=== PATIENT | female | born 1955 | race Caucasian/White ===

== ENCOUNTER 2016-04-27 11:35 | Emergency (ER) | payer MEDICARE, OTHER ==
[2015-09-30 01:40] VITALS: BMI 23.6
[~2016-04-27 11:35] MED LIST: ADVIL200 MG PO; ASPIRIN325 MG PO; CLEOCIN HCL75 MG; CLONAZEPAM1 MG/TAB PO; CLONAZEPAM2 MG/TAB; CLONAZEPAM2 MG/TAB PO; COLACE100 MG PO; CREON (PANCRELI1 CAP PO; CREON DR 24,001 EACH PO; DILAUDID2 MG PO; ESTRACE1 MG PO; HYDROCODON-ACE1 EAC7 PO; HYDROCODONE-APA1 TAB PO; IBUPROFEN200 MG PO; K-DUR20 MEQ PO; LIBRAX CAPSULE1 CAP PO; LIDOCAINE PATCH; MIGRANAL IH; MILK OF MAGNESI30 ML PO; PERCOCET 10/3251 TA1 PO; SEROQUEL200 MG PO; SEROQUEL400 MG PO; TENORMIN100 MG PO; TRICOR145 MG PO
[2016-04-27 13:08] LABS: BASOPHILS 0.2 % (0.0-2.0); HEMATOCRIT 37.4 % (36.0-48.0); HEMOGLOBIN 12.6 g/dL (12-16); IMMATURE GRANULOCYTES 0.5 % (0-5); LYMPHOCYTES 19.9 % (15-50); MCH 29.5 pg (26.0-34.0); MCHC 33.7 g/dL (31.0-37.0); MCV 87.6 fL (80.0-100.0); MEAN PLATELET VOLUME 9.2 fL (7.4-10.4); MONOCYTES 8.8 % (2-11); NEUTROPHILS 68.6 % (40-80); RBC 4.27 10x6/uL (4.00-5.40); RDW 12.6 % (11.5-14.5); WBC 4.1 10x3/uL (4.8-10.8)
[2016-04-27 13:19] LABS: PLATELET COUNT 181 10x3/uL (130-400)
[2016-04-27 13:27] LABS: ALBUMIN 3.6 g/dL (3.4-5.0); ANION GAP 16.2 mmol/L (8-16); BILIRUBIN - TOTAL 0.3 mg/dL (0.2-1.3); CALCIUM 9.4 mg/dL (8.5-10.1); CARBON DIOXIDE 22.7 mmol/L (21.0-32.0); CREATININE - SERUM 1.2 mg/dL (0.6-1.3); POTASSIUM - SERUM 4.9 mmol/L (3.5-5.1); PROTEIN - SERUM 7.8 g/dL (6.4-8.2)
[2016-04-27 14:51] LABS: APPEARANCE CLEAR (CLEAR); BILIRUBIN NEGATIVE (NEGATIVE); COLOR YELLOW (YELLOW); GLUCOSE NEGATIVE (NEGATIVE); KETONE NEGATIVE (NEGATIVE); LEUKOCYTE ESTERASE NEGATIVE (NEGATIVE); NITRITE NEGATIVE (NEGATIVE); PROTEIN NEGATIVE (NEGATIVE); UROBILINOGEN NORMAL (NORMAL)
[2016-04-27 14:53] LABS: BACTERIA MODERATE /hpf (NONE SEEN); EPITHELIAL CELLS 0-5 /hpf (0-5); WHITE CELLS - URINE 0-5 /hpf (0-5)
[2016-04-27 15:00] LABS: UDS - AMPHET NEGATIVE QUAL (NEGATIVE); UDS - BARB NEGATIVE QUAL (NEGATIVE); UDS - BENZO POSITIVE QUAL (NEGATIVE); UDS - COCAINE NEGATIVE QUAL (NEGATIVE); UDS - METH NEGATIVE QUAL (NEGATIVE); UDS - OPIATE NEGATIVE QUAL (NEGATIVE); UDS - PCP NEGATIVE QUAL (NEGATIVE); UDS - THC NEGATIVE QUAL (NEGATIVE)
[2016-05-25] MEDS ORDERED: OXYCODONE HCL E20 MG PO (15:19)
== END 2016-04-27 16:54 | disposition home or self-care (01) ==
LOC: D.ER 11:35
PROVIDERS: Nurse Practitioner Family
DX: R50.9 Fever, unspecified (principal); T80.212A Local infection due to central venous catheter, initial encounter

== ENCOUNTER 2016-05-26 07:36 | Day surgery (SDC) | payer MEDICARE, OTHER ==
[~2016-05-26] VITALS: Ht 175.3 cm; Wt 73.5 kg
[~2016-05-26 07:36] MED LIST changes: +OXYCODONE HCL E20 MG PO
[2016-05-26 09:34] VITALS: BP 145/69; Ht 175.3 cm; Wt 73.5 kg
[2016-05-26] MEDS ORDERED: PERCOCET 10/3251 TA1 PO (13:01)
[2016-05-26] MEDS ORDERED: ADOXA50 MG PO (13:02)
--- NOTE | 2016-05-26 13:43 | NUR ---
PRE OP BP 164/90
--- NOTE | 2016-05-26 15:30 | NUR ---
NO FURTHER BLEEDING FROM RIGHT HIP SITE. NO BLEEDING FROM JUGULAR SITE. DISCHARGED HOME VIA WC.
--- NOTE | 2016-05-30 16:00 | OP ---
PATIENT NAME: BRANDIE GEIGER MEDICAL RECORD: [id number] :57 LOCATION:D.OPS ADMISSION DATE: SURGEON: TIFFANIE ROSS MD DATE OF OPERATION: 05/26/2016 PREOPERATIVE DIAGNOSES: 1. Painful right hip scar. 2. Right hip cyst. 3. Tobacco dependence syndrome. 4. Hypertension. 5. Asthma. 6. Hemochromatosis. POSTOPERATIVE DIAGNOSES: 1. Painful right hip scar. 2. Right hip cyst. 3. Tobacco dependence syndrome. 4. Hypertension. 5. Asthma. 6. Hemochromatosis. PROCEDURES: 1. Excision of right hip scar with primary closure. 2. Excision of right lateral thigh cyst. SURGEON: Tiffanie Ross MD REPORT OF PROCEDURE: The patient's right hip and lower extremity were prepped and draped in sterile fashion. The patient had a large scar present on the lateral aspect of the heel. An ovoid incision was made around it. In total length, this incision was 18-1/2 cm long. The incision was carried down through subcutaneous tissue and around this inflamed scar tissue. Eventually once we got down near the muscle, there was noted to be a cystic cavity present. There was no purulence within it, but some old fibrinous gelatinous tissue. This was removed and there was no sign of any infection at any point. Note, muscle and fascia itself appeared to be intact and in good condition. After, we had removed all of the scar tissue, then the subcutaneous tissues were irrigated out and reapproximated with multiple interrupted 3-0 Vicryls. The skin was then closed with vertical mattress 2-0 nylons. There is another firm area just inferior and anterior to this on the lateral right heel and ovoid incision was made longitudinally over top of this and it measured 6 cm in length. We came through the subcutaneous tissues and we encountered the cyst cavity with some what appeared to be kind of purulent material. There was no foul odor. There was no sign of any surrounding erythema and there was just a small amount of this material. We completely excised the cyst cavity and it got down to just normal appearing fatty tissue. This tissue was irrigated out with normal saline and the skin was then closed with interrupted vertical mattress 2-0 nylons. The wounds were then dressed appropriately. COMPLICATIONS: None. CONDITION: Stable. ANESTHESIA: General endotracheal. OPERATIVE REPORT [id number] BRANDIE GEIGER BLOOD LOSS: 50 mL. TRANSINT:[id number] Voice Confirmation ID: [id number] DOCUMENT ID: [id number] TIFFANIE ROSS MD at 1600 CC: [id number] DICTATION DATE: 05/26/16 1310 DESIGN LEAD: 05/26/16 2104 [facility] 05/26/16 [place] [id number] [place] [id number]
== END 2016-05-26 15:30 | disposition home or self-care (01) ==
LOC: D.OPS 07:36 → D.PAN 09:40 → D.OPS 11:30
DX: L90.5 Scar conditions and fibrosis of skin (principal); L72.0 Epidermal cyst

== ENCOUNTER 2016-05-27 15:53 | Emergency (ER) | payer MEDICARE, OTHER ==
[2016-05-26 09:34] VITALS: BMI 23.9
[~2016-05-27 15:53] MED LIST changes: +ADOXA50 MG PO
[2016-05-27 19:17] LABS: BASOPHILS 0.2 % (0.0-2.0); EOSINOPHILS 1.4 % (0-7); HEMATOCRIT 29.1 % (36.0-48.0); HEMOGLOBIN 9.5 g/dL (12-16); LYMPHOCYTES 16.1 % (15-50); MCHC 32.6 g/dL (31.0-37.0); MCV 85.8 fL (80.0-100.0); MEAN PLATELET VOLUME 9.1 fL (7.4-10.4); NEUTROPHILS 72.3 % (40-80); PLATELET COUNT 211 10x3/uL (130-400); RBC 3.39 10x6/uL (4.00-5.40); RDW 12.5 % (11.5-14.5); WBC 8.1 10x3/uL (4.8-10.8)
== END 2016-05-27 21:40 | disposition home or self-care (01) ==
LOC: D.ER 15:53
PROVIDERS: Physician Assistant
DX: G89.18 Other acute postprocedural pain (principal); Z98.890 Other specified postprocedural states; D64.9 Anemia, unspecified; F17.200 Nicotine dependence, unspecified, uncomplicated

== ENCOUNTER 2016-05-28 01:55 | Observation (INO) | payer MEDICARE, OTHER ==
[~2016-05-28] VITALS: Ht 175.3 cm; Wt 73.5 kg
[2016-05-28 03:25] LABS: BASOPHILS 0.1 % (0.0-2.0); EOSINOPHILS 2.5 % (0-7); HEMATOCRIT 27.6 % (36.0-48.0); IMMATURE GRANULOCYTES 0.4 % (0-5); LYMPHOCYTES 21.2 % (15-50); MCH 28.3 pg (26.0-34.0); MCHC 32.6 g/dL (31.0-37.0); MCV 86.8 fL (80.0-100.0); MEAN PLATELET VOLUME 8.8 fL (7.4-10.4); MONOCYTES 13.5 % (2-11); NEUTROPHILS 62.3 % (40-80); PLATELET COUNT 189 10x3/uL (130-400); RBC 3.18 10x6/uL (4.00-5.40); RDW 12.5 % (11.5-14.5); WBC 7.3 10x3/uL (4.8-10.8)
[2016-05-28 04:33] LABS: ALBUMIN 3.2 g/dL (3.4-5.0); ANION GAP 12.6 mmol/L (8-16); BILIRUBIN - TOTAL 0.14 mg/dL (0.2-1.3); CALCIUM 8.6 mg/dL (8.5-10.1); CARBON DIOXIDE 29.7 mmol/L (21.0-32.0); CREATININE - SERUM 1.1 mg/dL (0.6-1.3); MAGNESIUM - SERUM 1.9 mg/dL (1.8-2.4); PHOSPHOROUS 4.1 mg/dL (2.5-4.9); POTASSIUM - SERUM 3.3 mmol/L (3.5-5.1); PROTEIN - SERUM 6.3 g/dL (6.4-8.2)
[2016-05-28 04:35] LABS: APTT 31.7 SECONDS (22.8-39.4); INR 1.2 (0.85-1.17); PROTIME 15.1 SECONDS (11.6-15.0)
[2016-05-28 05:08] VITALS: BP 148/58; BMI 23.9
--- NOTE | 2016-05-28 07:10 | NUR ---
WALKING ROUNDS.PT WITHOUT DISTRESS.NPO FOR POSSIBLE SURGERY TODAY.PAIN CONTROLLED WITH CONSTRUCTION EQUIPMENT TECHNICIAN.DRESSING RIGHT HIP CLEN,DRY AND INTACT.CALL LIGHT IN REACH.
--- NOTE | 2016-05-28 08:10 | NUR ---
ASSESSMENT PER FLOW SHEET.PT WITHOUT DISTRESS.CONSENTS TO CHART ORDERED.PT UP TO BATHROOM TO VOID.DRESSING RIGHT HIP REMAINS CLEAN AND DRY.PT REMAINS NPO.
--- NOTE | 2016-05-28 08:36 | NUR ---
PRE MEDS ORDERED,SEE MAY.JOSE FONTAINE COMPLETE.
[2016-05-28 08:57] VITALS: BP 103/44
[2016-05-28 10:37] VITALS: Ht 175.3 cm; Wt 73.5 kg
[2016-05-28 12:24] VITALS: BP 107/52
--- NOTE | 2016-05-28 15:10 | NUR ---
BLOOD PRODUCTS ORDERED.PT WITHOUT REACTIONS.MONITOR FOR CHANGE.
--- NOTE | 2016-05-28 15:35 | NUR ---
BLOOD PRODUCTS COMPLETE.REMAINS WITHOUT REACTIONS.
--- NOTE | 2016-05-28 19:41 | NUR ---
REMAINS UNCHANGED FROM INITIAL ASSESSMENT.DRESSING RIGHT HIP REMAINS CDI. CONT PLAN OF CARE
[2016-05-28 20:00] VITALS: BP 132/61
--- NOTE | 2016-05-28 20:01 | NUR ---
PATIENT WATCHING TV AND DENIES NEEDS AT THIS TIME. BED IN LOWEST POSITION AND CALL LIGHT WITHIN REACH. ENCOURAGED PATIENT TO CALL IF SHE NEEDS ASSISTANCE.
[2016-05-29] VITALS: BP 113/62
[2016-05-29 04:00] VITALS: BP 110/58
[2016-05-29 07:53] VITALS: BP 143/64
--- NOTE | 2016-05-29 08:00 | NUR ---
WALKING ROUNDS,WITHOUT DISTRESS.AWAKENS INT.CALL LIGHT IN REACH
--- NOTE | 2016-05-29 08:00 | NUR ---
ASSESSMENT PER FLOW SHEET.PT WITHOUT DISTRESS.CALL LIGHT IN REACH.
[2016-05-29 11:10] VITALS: BP 131/75
--- NOTE | 2016-05-29 12:30 | NUR ---
PAIN CONTROLLED WITH HEALTH CONSULTANT.
[2016-05-29 15:56] VITALS: BP 117/50
--- NOTE | 2016-05-29 18:56 | NUR ---
REMAINS WITHOUT BLEEDING.WILL DISCHARGE HOME TODAY. SEE ORDERS
--- NOTE | 2016-05-29 21:09 | NUR ---
PATIENT HAS VOICED CONCERNS ABOUT GOING HOME AND REQUESTED THAT DR. ROSS BE CALLED ABOUT POSTPONING HER D/C. PAGED DR. ROSS WHO SAID NOT TO D/C THE PATIENT.
[2016-05-30] VITALS: BP 148/63
--- NOTE | 2016-05-30 01:31 | NUR ---
MARKED APROX 8X10 AREA ON PRESSURE DRESSING. IS AT BEDSIDE AND THE PATIENT IS CONCERNED ABOUT GOING HOME.
[2016-05-30 04:00] VITALS: BP 144/60
[2016-05-30 08:14] VITALS: BP 151/68
--- NOTE | 2016-05-30 08:14 | NUR ---
PT AOX4 RESP EVEN AND NONLABORED IV TO RIGHT BREAST PATENT AND INTACT PT. DENIES NEEDS AT THIS TIME BED AT LOWEST SETTING AND CALL LIGHT WITHIN REACH
[2016-05-30 12:07] VITALS: BP 128/68
[2016-05-30 15:29] VITALS: BP 172/81
--- NOTE | 2016-05-30 17:23 | NUR ---
IV DISCONTINUED FROM RIGHT BREAST PATENT AND INTACT PT WHEELED OUT OF HOSPITAL VIA WHEELCHAIR VIA PRIVATE VEHICLE HOME
--- NOTE | 2016-07-12 14:51 | DS ---
PATIENT:BRANDIE GEIGER :57 MEDICAL RECORD: [id number] DISCHARGE SUMMARY ADMISSION DATE: 05/28/16 DISCHARGE DATE: 05/30/16 DATE OF ADMISSION: 05/28/2016. DATE OF DISCHARGE: 05/30/2016. ADMISSION DIAGNOSES: 1. Postoperative bleeding, status post scar revision of the right lateral hip. 2. Hypertension. 3. Acute blood loss anemia. 4. Hemochromatosis. DISCHARGE DIAGNOSES: 1. Postoperative bleeding, status post scar revision of the right lateral hip. 2. Hypertension. 3. Acute blood loss anemia. 4. Hemochromatosis. PROCEDURE: None. CONSULTATIONS: None. REPORT OF HOSPITALIZATION: The patient was admitted to the hospital with some bleeding from her dressing on the right lateral hip 2 days before she had undergone surgery for scar revision. She was admitted back to the hospital. She had some bleeding that was present, was treated with a pressure dressing, which significantly slowed the bleeding down. Her coags were essentially normal, but her INR was mildly elevated at 1.2. Per the patient's report, this is about the fourth time she has had issues with postoperative bleeding. She reports easy bruisability. She has been seen by Dr. Wilson in the past for hemochromatosis, but never been worked up for any sort of bleeding or coagulation disorders. For a couple of days, she was monitored and had no signs of significant bleeding. She still had some bloody drainage from her dressing, but did not appear to have acute bleed and her hemoglobin and hematocrit stayed level. At that point, she was felt to be stable for discharge home. At the initial day of admission, the patient was given a unit of cryoprecipitate. DISCHARGE INSTRUCTIONS: Return to clinic or call with any questions or concerns or bleeding. FOLLOWUP: In clinic with me in 1-2 weeks. DISCHARGE MEDICATIONS: Resume all home medications and stop her ibuprofen. TRANSINT:[id number] Voice Confirmation ID: [id number] DOCUMENT ID: [id number] DISCHARGE SUMMARY REPORT [id number] FELYBINGBRANDIETIFFANIE SPANGLER MD at 1451 CC: [id number] DICTATION DATE: 06/17/16 1259 TURBINE INSPECTOR: 06/18/16 0336 DIS IN 05/30/16 [address] [id number] [place] [address]
== END 2016-05-30 16:20 | disposition home or self-care (01) ==
LOC: D.ER 01:55 → OBSVTIME 03:58 → D.MS 03:58
PROVIDERS: Surgery; ADMIT Surgery
DX: L76.22 Postprocedural hemorrhage of skin and subcutaneous tissue following other procedure (principal); Y83.8 Other surgical procedures as the cause of abnormal reaction of the patient, or of later complication, without mention of misadventure at the time of the procedure; I10 Essential (primary) hypertension; R00.0 Tachycardia, unspecified; E78.5 Hyperlipidemia, unspecified; Z87.891 Personal history of nicotine dependence

== ENCOUNTER → 2016-06-28 16:43 | Outpatient (CLI) | payer MEDICARE, OTHER ==
[2016-05-28 10:37] VITALS: BMI 23.9
[2016-06-28 17:51] LABS: HEMATOCRIT 33.7 % (36.0-48.0); HEMOGLOBIN 11.1 g/dL (12-16); MCHC 32.9 g/dL (31.0-37.0); MEAN PLATELET VOLUME 9.2 fL (7.4-10.4); RBC 3.83 10x6/uL (4.00-5.40); RDW 13.8 % (11.5-14.5); WBC 6.4 10x3/uL (4.8-10.8)
[2016-06-28 19:03] LABS: IRON 38 ug/dl (35-150); UNSAT IRON BIND CAPACITY 256 ug/dl (150-375)
[2016-06-28 19:04] LABS: % SATURATION 12 % (15-55); TOTAL IRON BIND CAPACITY 294 ug/dl (260-445)
== END | disposition home or self-care (01) ==
LOC: D.LAB 15:30
PROVIDERS: Legal Medicine
DX: D69.9 Hemorrhagic condition, unspecified (principal)

== ENCOUNTER 2016-07-20 01:01 | Emergency (ER) | payer MEDICARE, OTHER ==
[2016-05-28 10:37] VITALS: BMI 23.9
== END 2016-07-20 04:37 | disposition home or self-care (01) ==
LOC: D.ER 01:01
DX: G89.18 Other acute postprocedural pain (principal); L76.82 Other postprocedural complications of skin and subcutaneous tissue

== ENCOUNTER → 2016-12-30 17:11 | Outpatient (CLI) | payer MEDICARE, OTHER ==
[2016-05-28 10:37] VITALS: BMI 23.9
[2016-12-30 20:39] LABS: APPEARANCE CLEAR (CLEAR); BILIRUBIN NEGATIVE (NEGATIVE); COLOR YELLOW (YELLOW); GLUCOSE NEGATIVE (NEGATIVE); KETONE NEGATIVE (NEGATIVE); NITRITE NEGATIVE (NEGATIVE); PROTEIN NEGATIVE (NEGATIVE); UROBILINOGEN NORMAL (NORMAL)
== END | disposition home or self-care (01) ==
LOC: D.LABREF 17:11
PROVIDERS: Family Medicine
DX: N39.0 Urinary tract infection, site not specified (principal)

== ENCOUNTER → 2017-01-02 13:12 | Outpatient (CLI) | payer MEDICARE, OTHER ==
[2016-05-28 10:37] VITALS: BMI 23.9
[2017-01-02 13:58] LABS: BASOPHILS 0.5 % (0-2); EOSINOPHILS 5.6 % (0-7); HEMATOCRIT 28.8 % (36.0-48.0); HEMOGLOBIN 9.4 g/dL (12-16); IMMATURE GRANULOCYTES 1.1 % (0-5); LYMPHOCYTES 20.3 % (15-50); MCH 29.6 pg (26.0-34.0); MCHC 32.6 g/dL (31.0-37.0); MCV 90.6 fL (80.0-100.0); MEAN PLATELET VOLUME 10.7 fL (7.4-10.4); MONOCYTES 9.3 % (2-11); NEUTROPHILS 63.2 % (40-80); PLATELET COUNT 193 10x3/uL (130-400); RBC 3.18 10x6/uL (4.00-5.40); RDW 12.9 % (11.5-14.5); WBC 4.4 10x3/uL (4.8-10.8)
[2017-01-02 14:20] LABS: CREATININE - SERUM 0.9 mg/dL (0.6-1.3); VANCOMYCIN - TROUGH 10.8 ug/mL (10.0-20.0)
== END | disposition home or self-care (01) ==
LOC: D.LABREF 13:12
PROVIDERS: Family Medicine
DX: T84.59XA Infection and inflammatory reaction due to other internal joint prosthesis, initial encounter (principal)

== ENCOUNTER → 2017-01-09 13:51 | Outpatient (CLI) | payer MEDICARE, OTHER ==
[2016-05-28 10:37] VITALS: BMI 23.9
[2017-01-09 16:26] LABS: BASOPHILS 0.2 % (0-2); EOSINOPHILS 5.4 % (0-7); HEMATOCRIT 28.4 % (36.0-48.0); HEMOGLOBIN 9.2 g/dL (12-16); IMMATURE GRANULOCYTES 0.2 % (0-5); LYMPHOCYTES 17.3 % (15-50); MCH 29.8 pg (26.0-34.0); MCHC 32.4 g/dL (31.0-37.0); MCV 91.9 fL (80.0-100.0); MEAN PLATELET VOLUME 10.7 fL (7.4-10.4); MONOCYTES 8.8 % (2-11); NEUTROPHILS 68.1 % (40-80); PLATELET COUNT 200 10x3/uL (130-400); RBC 3.09 10x6/uL (4.00-5.40); RDW 14.2 % (11.5-14.5); WBC 4.4 10x3/uL (4.8-10.8)
== END | disposition home or self-care (01) ==
LOC: D.LABREF 13:51
PROVIDERS: Family Medicine
DX: T84.53XD Infection and inflammatory reaction due to internal right knee prosthesis, subsequent encounter (principal)

== ENCOUNTER → 2017-01-11 15:44 | Outpatient (CLI) | payer MEDICARE, OTHER ==
[2016-05-28 10:37] VITALS: BMI 23.9
[2017-01-11 16:51] LABS: BASOPHILS 0.2 % (0-2); EOSINOPHILS 6.6 % (0-7); HEMATOCRIT 32.8 % (36.0-48.0); HEMOGLOBIN 10.6 g/dL (12-16); IMMATURE GRANULOCYTES 0.2 % (0-5); LYMPHOCYTES 18.4 % (15-50); MCH 29.6 pg (26.0-34.0); MCHC 32.3 g/dL (31.0-37.0); MCV 91.6 fL (80.0-100.0); MEAN PLATELET VOLUME 10.1 fL (7.4-10.4); MONOCYTES 10.9 % (2-11); NEUTROPHILS 63.7 % (40-80); PLATELET COUNT 193 10x3/uL (130-400); RBC 3.58 10x6/uL (4.00-5.40); RDW 13.9 % (11.5-14.5); WBC 4.2 10x3/uL (4.8-10.8)
[2017-01-11 17:09] LABS: CREATININE - SERUM 1.5 mg/dL (0.6-1.3); VANCOMYCIN - TROUGH 26.3 ug/mL (10.0-20.0)
== END | disposition home or self-care (01) ==
LOC: D.LABREF 15:44
PROVIDERS: Family Medicine
DX: Z51.81 Encounter for therapeutic drug level monitoring (principal); Z79.2 Long term (current) use of antibiotics; E83.119 Hemochromatosis, unspecified; T84.53XD Infection and inflammatory reaction due to internal right knee prosthesis, subsequent encounter

== ENCOUNTER → 2017-01-16 13:36 | Outpatient (CLI) | payer MEDICARE, OTHER ==
[2016-05-28 10:37] VITALS: BMI 23.9
[2017-01-16 14:06] LABS: BASOPHILS 0.2 % (0-2); EOSINOPHILS 6.6 % (0-7); HEMATOCRIT 31.1 % (36.0-48.0); HEMOGLOBIN 10.4 g/dL (12-16); IMMATURE GRANULOCYTES 0.2 % (0-5); LYMPHOCYTES 18.4 % (15-50); MCH 29.7 pg (26.0-34.0); MCHC 33.4 g/dL (31.0-37.0); MCV 88.9 fL (80.0-100.0); MEAN PLATELET VOLUME 11.2 fL (7.4-10.4); MONOCYTES 11.3 % (2-11); NEUTROPHILS 63.3 % (40-80); PLATELET COUNT 211 10x3/uL (130-400); RDW 13.4 % (11.5-14.5); WBC 4.2 10x3/uL (4.8-10.8)
[2017-01-16 14:22] LABS: CREATININE - SERUM 1.4 mg/dL (0.6-1.3)
== END | disposition home or self-care (01) ==
LOC: D.LABREF 13:36
PROVIDERS: Family Medicine
DX: T84.53XD Infection and inflammatory reaction due to internal right knee prosthesis, subsequent encounter (principal)

== ENCOUNTER → 2017-01-23 12:49 | Outpatient (CLI) | payer MEDICARE, OTHER ==
[2016-05-28 10:37] VITALS: BMI 23.9
[2017-01-23 13:42] LABS: BASOPHILS 0.4 % (0-2); EOSINOPHILS 6.5 % (0-7); HEMATOCRIT 30.8 % (36.0-48.0); HEMOGLOBIN 10.3 g/dL (12-16); IMMATURE GRANULOCYTES 0.4 % (0-5); LYMPHOCYTES 19.8 % (15-50); MCHC 33.4 g/dL (31.0-37.0); MCV 89.8 fL (80.0-100.0); MEAN PLATELET VOLUME 11.2 fL (7.4-10.4); MONOCYTES 9.3 % (2-11); NEUTROPHILS 63.6 % (40-80); PLATELET COUNT 231 10x3/uL (130-400); RBC 3.43 10x6/uL (4.00-5.40); RDW 13.4 % (11.5-14.5); WBC 4.6 10x3/uL (4.8-10.8)
[2017-01-23 13:51] LABS: CREATININE - SERUM 1.2 mg/dL (0.6-1.3); VANCOMYCIN - TROUGH 16.6 ug/mL (10.0-20.0)
== END | disposition home or self-care (01) ==
LOC: D.LABREF 12:49
PROVIDERS: Family Medicine
DX: T84.53XD Infection and inflammatory reaction due to internal right knee prosthesis, subsequent encounter (principal)

== ENCOUNTER → 2017-01-30 11:23 | Outpatient (CLI) | payer MEDICARE, OTHER ==
[2016-05-28 10:37] VITALS: BMI 23.9
[2017-01-30 12:33] LABS: BASOPHILS 0.2 % (0-2); EOSINOPHILS 4.4 % (0-7); HEMATOCRIT 31.3 % (36.0-48.0); HEMOGLOBIN 10.5 g/dL (12-16); IMMATURE GRANULOCYTES 0.4 % (0-5); LYMPHOCYTES 14.1 % (15-50); MCH 29.7 pg (26.0-34.0); MCHC 33.5 g/dL (31.0-37.0); MCV 88.4 fL (80.0-100.0); MEAN PLATELET VOLUME 11.1 fL (7.4-10.4); MONOCYTES 7.4 % (2-11); NEUTROPHILS 73.5 % (40-80); PLATELET COUNT 208 10x3/uL (130-400); RBC 3.54 10x6/uL (4.00-5.40); RDW 12.9 % (11.5-14.5); WBC 4.8 10x3/uL (4.8-10.8)
[2017-01-30 13:08] LABS: CREATININE - SERUM 0.9 mg/dL (0.6-1.3); VANCOMYCIN - TROUGH 10.2 ug/mL (10.0-20.0)
== END | disposition home or self-care (01) ==
LOC: D.LABREF 11:23
PROVIDERS: Family Medicine
DX: T84.53XD Infection and inflammatory reaction due to internal right knee prosthesis, subsequent encounter (principal)

== ENCOUNTER → 2017-06-19 16:20 | Outpatient (CLI) | payer MEDICARE, OTHER ==
[2016-05-28 10:37] VITALS: BMI 23.9
[2017-06-20 07:36] LABS: ANION GAP 16.1 mmol/L (8-16); CALCIUM 8.1 mg/dL (8.5-10.1); CARBON DIOXIDE 26.5 mmol/L (21.0-32.0); HEMOGLOBIN 8.8 g/dL (12-16); MCH 29.9 pg (26.0-34.0); MCHC 32.6 g/dL (31.0-37.0); MCV 91.8 fL (80.0-100.0); PLATELET COUNT 174 10x3/uL (130-400); POTASSIUM - SERUM 3.6 mmol/L (3.5-5.1); RBC 2.94 10x6/uL (4.00-5.40); RDW 13.1 % (11.5-14.5); WBC 4.5 10x3/uL (4.8-10.8)
[2017-06-20 07:37] LABS: BASOPHILS 0.2 % (0-2); EOSINOPHILS 4.9 % (0-7); IMMATURE GRANULOCYTES 0.4 % (0-5); MEAN PLATELET VOLUME 11.4 fL (7.4-10.4); MONOCYTES 10.7 % (2-11); NEUTROPHILS 70.8 % (40-80)
[2017-06-20 07:47] LABS: VANCOMYCIN - TROUGH 7.6 ug/mL (10.0-20.0)
== END | disposition home or self-care (01) ==
LOC: D.LABREF 16:20
PROVIDERS: Family Medicine
DX: M00.9 Pyogenic arthritis, unspecified (principal)

== ENCOUNTER → 2017-06-26 14:05 | Outpatient (CLI) | payer MEDICARE, OTHER ==
[2016-05-28 10:37] VITALS: BMI 23.9
[2017-06-26 14:54] LABS: BASOPHILS 0.4 % (0-2); EOSINOPHILS 6.3 % (0-7); HEMATOCRIT 28.3 % (36.0-48.0); HEMOGLOBIN 9.3 g/dL (12-16); IMMATURE GRANULOCYTES 0.4 % (0-5); LYMPHOCYTES 15.6 % (15-50); MCH 29.9 pg (26.0-34.0); MCHC 32.9 g/dL (31.0-37.0); MEAN PLATELET VOLUME 10.1 fL (7.4-10.4); MONOCYTES 5.5 % (2-11); NEUTROPHILS 71.8 % (40-80); RBC 3.11 10x6/uL (4.00-5.40); RDW 13.4 % (11.5-14.5); WBC 4.7 10x3/uL (4.8-10.8)
[2017-06-26 14:55] LABS: PLATELET COUNT 228 10x3/uL (130-400)
[2017-06-26 15:07] LABS: ALBUMIN 2.5 g/dL (3.4-5.0); ALKALINE PHOSPHATASE 311 U/L (46-116); ALT (SGPT) 18 U/L (10-68); BILIRUBIN - TOTAL 0.24 mg/dL (0.2-1.3); CALC OSMOLALITY 287 mosm/kg (275-300); CALCIUM 8.4 mg/dL (8.5-10.1); CARBON DIOXIDE 28.7 mmol/L (21.0-32.0); CHLORIDE - SERUM 108 mmol/L (98-107); CREATININE - SERUM 0.8 mg/dL (0.6-1.3); GLUCOSE 112 mg/dL (74-106); POTASSIUM - SERUM 3.6 mmol/L (3.5-5.1); PROTEIN - SERUM 5.9 g/dL (6.4-8.2); SODIUM 144 mmol/L (136-145); UREA NITROGEN 12 mg/dL (7-18); VANCOMYCIN - TROUGH 13.2 ug/mL (10.0-20.0); eGFR NON AFRICAN AMERICAN 77 mL/min (90-120)
[2017-06-26 15:10] LABS: BILIRUBIN - DIRECT 0.04 mg/dL (0.00-0.30)
== END | disposition home or self-care (01) ==
LOC: D.LABREF 14:05
PROVIDERS: Orthopaedic Surgery
DX: M00.9 Pyogenic arthritis, unspecified (principal)

== ENCOUNTER → 2017-07-03 19:32 | Outpatient (CLI) | payer MEDICARE, OTHER ==
[2016-05-28 10:37] VITALS: BMI 23.9
[2017-07-03 19:45] LABS: BASOPHILS 0.6 % (0-2); EOSINOPHILS 12.6 % (0-7); HEMATOCRIT 29.6 % (36.0-48.0); HEMOGLOBIN 9.7 g/dL (12-16); IMMATURE GRANULOCYTES 0.2 % (0-5); LYMPHOCYTES 18.9 % (15-50); MCH 29.6 pg (26.0-34.0); MCHC 32.8 g/dL (31.0-37.0); MCV 90.2 fL (80.0-100.0); MEAN PLATELET VOLUME 10.6 fL (7.4-10.4); MONOCYTES 10.4 % (2-11); NEUTROPHILS 57.3 % (40-80); PLATELET COUNT 256 10x3/uL (130-400); RBC 3.28 10x6/uL (4.00-5.40); WBC 4.9 10x3/uL (4.8-10.8)
[2017-07-03 20:20] LABS: ANION GAP 13.3 mmol/L (8-16); BILIRUBIN - DIRECT 0.09 mg/dL (0.00-0.30); BILIRUBIN - INDIRECT 0.24 mg/dL (0.00-1.00); BILIRUBIN - TOTAL 0.33 mg/dL (0.2-1.3); CALCIUM 8.9 mg/dL (8.5-10.1); CARBON DIOXIDE 24.1 mmol/L (21.0-32.0); CREATININE - SERUM 0.9 mg/dL (0.6-1.3); POTASSIUM - SERUM 3.4 mmol/L (3.5-5.1); PROTEIN - SERUM 6.3 g/dL (6.4-8.2); VANCOMYCIN - TROUGH 15.6 ug/mL (10.0-20.0)
== END | disposition home or self-care (01) ==
LOC: D.LABREF 19:32
PROVIDERS: Internal Medicine
DX: M00.9 Pyogenic arthritis, unspecified (principal)

== ENCOUNTER → 2017-07-10 13:59 | Outpatient (CLI) | payer MEDICARE, OTHER ==
[2016-05-28 10:37] VITALS: BMI 23.9
[2017-07-10 14:19] LABS: BASOPHILS 0.3 % (0-2); EOSINOPHILS 10.9 % (0-7); HEMATOCRIT 30.6 % (36.0-48.0); HEMOGLOBIN 10.2 g/dL (12-16); IMMATURE GRANULOCYTES 0.3 % (0-5); MCH 30.2 pg (26.0-34.0); MCHC 33.3 g/dL (31.0-37.0); MCV 90.5 fL (80.0-100.0); MEAN PLATELET VOLUME 11.8 fL (7.4-10.4); MONOCYTES 7.6 % (2-11); NEUTROPHILS 59.9 % (40-80); PLATELET COUNT 205 10x3/uL (130-400); RBC 3.38 10x6/uL (4.00-5.40); RDW 14.5 % (11.5-14.5); WBC 3.6 10x3/uL (4.8-10.8)
[2017-07-10 14:38] LABS: ALBUMIN 3.1 g/dL (3.4-5.0); ALKALINE PHOSPHATASE 185 U/L (46-116); ALT (SGPT) 37 U/L (10-68); BILIRUBIN - DIRECT 0.07 mg/dL (0.00-0.30); BILIRUBIN - INDIRECT 0.19 mg/dL (0.00-1.00); BILIRUBIN - TOTAL 0.26 mg/dL (0.2-1.3); CALC OSMOLALITY 284 mosm/kg (275-300); CARBON DIOXIDE 26.1 mmol/L (21.0-32.0); CHLORIDE - SERUM 106 mmol/L (98-107); CREATININE - SERUM 0.7 mg/dL (0.6-1.3); GLUCOSE 105 mg/dL (74-106); POTASSIUM - SERUM 3.4 mmol/L (3.5-5.1); PROTEIN - SERUM 6.2 g/dL (6.4-8.2); SODIUM 143 mmol/L (136-145); UREA NITROGEN 13 mg/dL (7-18); VANCOMYCIN - TROUGH 14.4 ug/mL (10.0-20.0); eGFR NON AFRICAN AMERICAN 90 mL/min (90-120)
== END | disposition home or self-care (01) ==
LOC: D.LABREF 13:59
PROVIDERS: Orthopaedic Surgery Hand Surgery
DX: M00.9 Pyogenic arthritis, unspecified (principal)

== ENCOUNTER → 2017-07-17 11:45 | Outpatient (CLI) | payer MEDICARE, OTHER ==
[2016-05-28 10:37] VITALS: BMI 23.9
[2017-07-17 13:18] LABS: BASOPHILS 0.2 % (0-2); EOSINOPHILS 13.5 % (0-7); HEMATOCRIT 29.2 % (36.0-48.0); HEMOGLOBIN 9.8 g/dL (12-16); IMMATURE GRANULOCYTES 0.2 % (0-5); LYMPHOCYTES 19.5 % (15-50); MCH 30.4 pg (26.0-34.0); MCHC 33.6 g/dL (31.0-37.0); MCV 90.7 fL (80.0-100.0); MEAN PLATELET VOLUME 11.8 fL (7.4-10.4); MONOCYTES 6.7 % (2-11); NEUTROPHILS 59.9 % (40-80); RBC 3.22 10x6/uL (4.00-5.40); WBC 4.3 10x3/uL (4.8-10.8)
[2017-07-17 13:27] LABS: PLATELET COUNT 148 10x3/uL (130-400)
[2017-07-17 13:28] LABS: ALBUMIN 3.1 g/dL (3.4-5.0); ANION GAP 13.8 mmol/L (8-16); BILIRUBIN - DIRECT 0.04 mg/dL (0.00-0.30); BILIRUBIN - INDIRECT 0.16 mg/dL (0.00-1.00); BILIRUBIN - TOTAL 0.2 mg/dL (0.2-1.3); CALCIUM 9.3 mg/dL (8.5-10.1); POTASSIUM - SERUM 3.8 mmol/L (3.5-5.1); VANCOMYCIN - TROUGH 14.5 ug/mL (10.0-20.0)
== END | disposition home or self-care (01) ==
LOC: D.LABREF 11:45
PROVIDERS: Internal Medicine
DX: M00.9 Pyogenic arthritis, unspecified (principal)

== ENCOUNTER → 2017-07-24 21:10 | Outpatient (CLI) | payer MEDICARE, OTHER ==
[2016-05-28 10:37] VITALS: BMI 23.9
[2017-07-24 22:41] LABS: BASOPHILS 0.2 % (0-2); HEMATOCRIT 29.3 % (36.0-48.0); HEMOGLOBIN 9.8 g/dL (12-16); LYMPHOCYTES 19.4 % (15-50); MCH 30.2 pg (26.0-34.0); MCHC 33.4 g/dL (31.0-37.0); MCV 90.4 fL (80.0-100.0); MEAN PLATELET VOLUME 11.7 fL (7.4-10.4); MONOCYTES 9.1 % (2-11); NEUTROPHILS 63.3 % (40-80); PLATELET COUNT 161 10x3/uL (130-400); RBC 3.24 10x6/uL (4.00-5.40); RDW 14.2 % (11.5-14.5); WBC 4.4 10x3/uL (4.8-10.8)
[2017-07-24 23:08] LABS: ALBUMIN 3.4 g/dL (3.4-5.0); ANION GAP 14.4 mmol/L (8-16); BILIRUBIN - DIRECT 0.06 mg/dL (0.00-0.30); BILIRUBIN - INDIRECT 0.13 mg/dL (0.00-1.00); BILIRUBIN - TOTAL 0.19 mg/dL (0.2-1.3); CALCIUM 8.7 mg/dL (8.5-10.1); CARBON DIOXIDE 27.9 mmol/L (21.0-32.0); CREATININE - SERUM 0.9 mg/dL (0.6-1.3); POTASSIUM - SERUM 3.3 mmol/L (3.5-5.1); PROTEIN - SERUM 6.1 g/dL (6.4-8.2); VANCOMYCIN - TROUGH 11.2 ug/mL (10.0-20.0)
== END | disposition home or self-care (01) ==
LOC: D.LAB 21:10
PROVIDERS: Orthopaedic Surgery
DX: M00.9 Pyogenic arthritis, unspecified (principal)

== ENCOUNTER → 2017-07-31 13:43 | Outpatient (CLI) | payer MEDICARE, OTHER ==
[2016-05-28 10:37] VITALS: BMI 23.9
[2017-07-31 16:09] LABS: BASOPHILS 0.3 % (0-2); EOSINOPHILS 12.4 % (0-7); HEMATOCRIT 30.7 % (36.0-48.0); HEMOGLOBIN 10.3 g/dL (12-16); LYMPHOCYTES 13.9 % (15-50); MCH 30.8 pg (26.0-34.0); MCHC 33.6 g/dL (31.0-37.0); MCV 91.9 fL (80.0-100.0); MEAN PLATELET VOLUME 11.6 fL (7.4-10.4); MONOCYTES 7.1 % (2-11); NEUTROPHILS 66.3 % (40-80); PLATELET COUNT 152 10x3/uL (130-400); RBC 3.34 10x6/uL (4.00-5.40); RDW 14.2 % (11.5-14.5); WBC 3.8 10x3/uL (4.8-10.8)
[2017-07-31 16:32] LABS: ALBUMIN 3.3 g/dL (3.4-5.0); ANION GAP 13.3 mmol/L (8-16); BILIRUBIN - DIRECT 0.06 mg/dL (0.00-0.30); BILIRUBIN - INDIRECT 0.14 mg/dL (0.00-1.00); BILIRUBIN - TOTAL 0.2 mg/dL (0.2-1.3); CARBON DIOXIDE 27.1 mmol/L (21.0-32.0); CREATININE - SERUM 1.1 mg/dL (0.6-1.3); POTASSIUM - SERUM 3.4 mmol/L (3.5-5.1); PROTEIN - SERUM 6.2 g/dL (6.4-8.2)
== END | disposition home or self-care (01) ==
LOC: D.LABREF 13:43
PROVIDERS: Orthopaedic Surgery
DX: M00.9 Pyogenic arthritis, unspecified (principal)

== ENCOUNTER → 2017-08-07 15:41 | Outpatient (CLI) | payer MEDICARE, OTHER ==
[2016-05-28 10:37] VITALS: BMI 23.9
[2017-08-07 16:51] LABS: BASOPHILS 0.3 % (0-2); EOSINOPHILS 11.3 % (0-7); HEMATOCRIT 30.7 % (36.0-48.0); HEMOGLOBIN 10.2 g/dL (12-16); LYMPHOCYTES 16.8 % (15-50); MCH 30.8 pg (26.0-34.0); MCHC 33.2 g/dL (31.0-37.0); MCV 92.7 fL (80.0-100.0); MEAN PLATELET VOLUME 11.2 fL (7.4-10.4); MONOCYTES 7.2 % (2-11); NEUTROPHILS 64.4 % (40-80); PLATELET COUNT 181 10x3/uL (130-400); RBC 3.31 10x6/uL (4.00-5.40); RDW 14.1 % (11.5-14.5); WBC 3.9 10x3/uL (4.8-10.8)
[2017-08-07 17:05] LABS: ALBUMIN 3.5 g/dL (3.4-5.0); ANION GAP 11.1 mmol/L (8-16); BILIRUBIN - DIRECT 0.07 mg/dL (0.00-0.30); BILIRUBIN - INDIRECT 0.08 mg/dL (0.00-1.00); BILIRUBIN - TOTAL 0.15 mg/dL (0.2-1.3); CALCIUM 9.1 mg/dL (8.5-10.1); CREATININE - SERUM 0.9 mg/dL (0.6-1.3); POTASSIUM - SERUM 3.1 mmol/L (3.5-5.1); PROTEIN - SERUM 6.1 g/dL (6.4-8.2); VANCOMYCIN - TROUGH 13.7 ug/mL (10.0-20.0)
== END | disposition home or self-care (01) ==
LOC: D.LABREF 15:41
PROVIDERS: Orthopaedic Surgery
DX: M00.9 Pyogenic arthritis, unspecified (principal)

== ENCOUNTER → 2017-08-14 20:24 | Outpatient (CLI) | payer MEDICARE, OTHER ==
[2016-05-28 10:37] VITALS: BMI 23.9
[2017-08-14 23:56] LABS: HEMATOCRIT 29.5 % (36.0-48.0); MCH 30.8 pg (26.0-34.0); MCHC 33.9 g/dL (31.0-37.0); MCV 90.8 fL (80.0-100.0); MEAN PLATELET VOLUME 11.5 fL (7.4-10.4); NEUTROPHILS 67.1 % (40-80); PLATELET COUNT 172 10x3/uL (130-400); RBC 3.25 10x6/uL (4.00-5.40); RDW 13.7 % (11.5-14.5); WBC 3.5 10x3/uL (4.8-10.8)
[2017-08-15 00:18] LABS: ALBUMIN 3.7 g/dL (3.4-5.0); ANION GAP 10.5 mmol/L (8-16); BILIRUBIN - DIRECT 0.05 mg/dL (0.00-0.30); BILIRUBIN - INDIRECT 0.15 mg/dL (0.00-1.00); BILIRUBIN - TOTAL 0.2 mg/dL (0.2-1.3); CALCIUM 8.4 mg/dL (8.5-10.1); CARBON DIOXIDE 29.7 mmol/L (21.0-32.0); POTASSIUM - SERUM 3.2 mmol/L (3.5-5.1); PROTEIN - SERUM 6.2 g/dL (6.4-8.2); VANCOMYCIN - TROUGH 11.6 ug/mL (10.0-20.0)
== END | disposition home or self-care (01) ==
LOC: D.LABREF 20:24
PROVIDERS: Internal Medicine
DX: M00.9 Pyogenic arthritis, unspecified (principal)

== ENCOUNTER → 2017-08-21 14:17 | Outpatient (CLI) | payer MEDICARE, OTHER ==
[2016-05-28 10:37] VITALS: BMI 23.9
[2017-08-21 17:01] LABS: BASOPHILS 0.2 % (0-2); EOSINOPHILS 7.3 % (0-7); HEMATOCRIT 29.6 % (36.0-48.0); HEMOGLOBIN 10.1 g/dL (12-16); IMMATURE GRANULOCYTES 0.2 % (0-5); LYMPHOCYTES 16.4 % (15-50); MCH 30.8 pg (26.0-34.0); MCHC 34.1 g/dL (31.0-37.0); MCV 90.2 fL (80.0-100.0); MEAN PLATELET VOLUME 11.7 fL (7.4-10.4); MONOCYTES 10.5 % (2-11); NEUTROPHILS 65.4 % (40-80); PLATELET COUNT 187 10x3/uL (130-400); RBC 3.28 10x6/uL (4.00-5.40); RDW 13.4 % (11.5-14.5); WBC 4.4 10x3/uL (4.8-10.8)
[2017-08-21 17:49] LABS: ANION GAP 14.8 mmol/L (8-16); CALCIUM 10.2 mg/dL (8.5-10.1); CARBON DIOXIDE 29.3 mmol/L (21.0-32.0); POTASSIUM - SERUM 3.1 mmol/L (3.5-5.1)
== END | disposition home or self-care (01) ==
LOC: D.LABREF 14:17
PROVIDERS: Orthopaedic Surgery
DX: Z51.81 Encounter for therapeutic drug level monitoring (principal); Z79.2 Long term (current) use of antibiotics; M86.9 Osteomyelitis, unspecified

== ENCOUNTER → 2017-08-23 12:29 | Outpatient (CLI) | payer MEDICARE, OTHER ==
[2016-05-28 10:37] VITALS: BMI 23.9
[2017-08-23 12:59] LABS: HEMATOCRIT 27.4 % (36.0-48.0); HEMOGLOBIN 9.2 g/dL (12-16)
[2017-08-23 13:21] LABS: CALCIUM 8.4 mg/dL (8.5-10.1); CARBON DIOXIDE 28.9 mmol/L (21.0-32.0); CREATININE - SERUM 1.2 mg/dL (0.6-1.3); THYROID STIMULATING HORMONE 4.62 uIU/mL (0.36-3.74)
[2017-08-23 13:22] LABS: ANION GAP 11.1 mmol/L (8-16)
== END | disposition home or self-care (01) ==
LOC: D.LABREF 12:29
PROVIDERS: Internal Medicine
DX: M00.9 Pyogenic arthritis, unspecified (principal)

== ENCOUNTER → 2017-08-28 22:36 | Outpatient (CLI) | payer MEDICARE, OTHER ==
[2016-05-28 10:37] VITALS: BMI 23.9
[2017-08-28 23:27] LABS: BASOPHILS 0.3 % (0-2); EOSINOPHILS 8.8 % (0-7); HEMATOCRIT 28.9 % (36.0-48.0); HEMOGLOBIN 9.6 g/dL (12-16); IMMATURE GRANULOCYTES 0.3 % (0-5); LYMPHOCYTES 20.9 % (15-50); MCH 30.7 pg (26.0-34.0); MCHC 33.2 g/dL (31.0-37.0); MCV 92.3 fL (80.0-100.0); MONOCYTES 7.2 % (2-11); NEUTROPHILS 62.5 % (40-80); PLATELET COUNT 161 10x3/uL (130-400); RBC 3.13 10x6/uL (4.00-5.40); RDW 13.5 % (11.5-14.5); WBC 3.7 10x3/uL (4.8-10.8)
[2017-08-28 23:42] LABS: ANION GAP 13.1 mmol/L (8-16); CALCIUM 8.5 mg/dL (8.5-10.1); CARBON DIOXIDE 30.9 mmol/L (21.0-32.0); CREATININE - SERUM 1.2 mg/dL (0.6-1.3); VANCOMYCIN - TROUGH 14.7 ug/mL (10.0-20.0)
== END | disposition home or self-care (01) ==
LOC: D.LABREF 22:36
PROVIDERS: Orthopaedic Surgery
DX: M86.9 Osteomyelitis, unspecified (principal); Z51.81 Encounter for therapeutic drug level monitoring; Z79.2 Long term (current) use of antibiotics

== ENCOUNTER → 2017-09-04 16:24 | Outpatient (CLI) | payer MEDICARE, OTHER ==
[2016-05-28 10:37] VITALS: BMI 23.9
[2017-09-04 16:48] LABS: BASOPHILS 0.3 % (0-2); EOSINOPHILS 8.5 % (0-7); HEMATOCRIT 28.9 % (36.0-48.0); HEMOGLOBIN 9.9 g/dL (12-16); IMMATURE GRANULOCYTES 0.3 % (0-5); LYMPHOCYTES 18.3 % (15-50); MCH 30.7 pg (26.0-34.0); MCHC 34.3 g/dL (31.0-37.0); MCV 89.8 fL (80.0-100.0); MEAN PLATELET VOLUME 11.2 fL (7.4-10.4); MONOCYTES 8.5 % (2-11); NEUTROPHILS 64.1 % (40-80); PLATELET COUNT 169 10x3/uL (130-400); RBC 3.22 10x6/uL (4.00-5.40); RDW 12.7 % (11.5-14.5); WBC 3.6 10x3/uL (4.8-10.8)
[2017-09-04 17:01] LABS: ALBUMIN 3.8 g/dL (3.4-5.0); BILIRUBIN - DIRECT 0.06 mg/dL (0.00-0.30); BILIRUBIN - INDIRECT 0.12 mg/dL (0.00-1.00); BILIRUBIN - TOTAL 0.18 mg/dL (0.2-1.3); CALCIUM 8.6 mg/dL (8.5-10.1); CARBON DIOXIDE 34.1 mmol/L (21.0-32.0); POTASSIUM - SERUM 3.1 mmol/L (3.5-5.1); PROTEIN - SERUM 6.5 g/dL (6.4-8.2); THYROID STIMULATING HORMONE 2.44 uIU/mL (0.36-3.74); VANCOMYCIN - TROUGH 14.7 ug/mL (10.0-20.0)
== END | disposition home or self-care (01) ==
LOC: D.LABREF 16:24
PROVIDERS: Orthopaedic Surgery
DX: M00.9 Pyogenic arthritis, unspecified (principal)

== ENCOUNTER 2018-01-16 11:28 | Day surgery (SDC) | payer MEDICARE, OTHER ==
[~2018-01-16] VITALS: Ht 175.3 cm; Wt 60.0 kg
--- NOTE | ~2018-01-16 | OP ---
PATIENT NAME: BRANDIE SWAIN MEDICAL RECORD: [id number] :57 LOCATION:D.OPS ADMISSION DATE: SURGEON: CLARENCE ALFARO MD DATE OF OPERATION: 01/16/2018 PROCEDURES: EGD with biopsy and colonoscopy. REFERRING PHYSICIANS: 1. Ila Sahni MD 2. Aviation Warfare Systems Operator/oncologist, Maximiliano Machado MD INDICATIONS: Ms. Swain is a pleasant 62-year-old woman with history of chronic constipation, who presents for further evaluation of symptoms of nausea, epigastric abdominal pain, gas, and unintentional weight loss of 40 pounds over the past 3-4 months. She presents for outpatient EGD and colonoscopy. PREMEDICATIONS: Total IV anesthesia (propofol 310 mg). INSTRUMENTS: Olympus video gastroscope and Olympus video colonoscope. PROCEDURE AND FINDINGS: After receiving informed consent, Ms. Swain's posterior pharynx was anesthetized with Cetacaine spray. She was placed in left lateral decubitus position and prepared for EGD. Bite-block was placed and she was then sedated as per anesthesia. After achieving adequate level of sedation, gastroscope was introduced per orally and advanced into the duodenum without difficulty. The esophageal mucosa was without erythema; however, in the proximal aspect of the distal third of the esophagus ulcer, was a single ulcer with a white base, nonhemorrhagic, and was biopsied. Small hiatal hernia was present. Gastric mucosa was notable for moderate distal body of stomach and antral mucosa. Biopsies were obtained from the antrum to rule out Helicobacter pylori. No lesions were seen in cardia or fundus. Pylorus was patent and competent. Duodenal mucosa was without erythema or ulcers, appeared normal to the second portion. Biopsies were taken from the second portion of the duodenum to rule out celiac disease. The gastroscope was then withdrawn. She was prepared for colonoscopy. Digital rectal exam was performed that showed no external hemorrhoidal tags, fissures, or fistulas. Normal sphincter tone. No palpable rectal masses. Colonoscope was introduced per rectally and advanced to the cecum without difficulty. There was a large amount of soft stool in the cecum, ascending, transverse, and descending colon. Multiple lavages were performed. There was no blood seen in the colon. No polyps were seen; however, secondary to the prep, polyps and even small masses may have been missed. Retroflexion in the rectum showed no significant internal hemorrhoids. Withdrawal time was 6 minutes. No immediate complications. ASSESSMENT: 1. Single esophageal ulcer, status post biopsy. 2. Small hiatal hernia. 3. Moderate gastritis, likely NSAID induced. 4. Normal colonoscopy with exception of a poor to fair prep. 5. Abnormal weight loss. RECOMMENDATIONS: 1. Followup histopathology. OPERATIVE REPORT [id number] FELYBRANDIE LAURADoe 2. Omeprazole 20 mg p.o. b.i.d. 3. Continue famotidine 20 mg p.o. b.i.d. 4. Limit nonsteroidal anti-inflammatory drugs. 5. Recommend CT of abdomen and pelvis. TRANSINT:[id number] Voice Confirmation ID: [id number] DOCUMENT ID: [id number] CLARENCE ALFARO MD at 1828 CC: MAXIMILIANO MACHADO MD and ILA SAHNI MD [id number] DICTATION DATE: 01/16/18 1526 NUTRITION SPECIALIST: 01/16/18 1825 [facility] 01/16/[address] [address]
[2018-01-16 11:57] LABS: HEMATOCRIT 32.3 % (36.0-48.0); HEMOGLOBIN 10.8 g/dL (12-16); MCH 30.9 pg (26.0-34.0); MCHC 33.4 g/dL (31.0-37.0); MCV 92.6 fL (80.0-100.0); MEAN PLATELET VOLUME 11.2 fL (7.4-10.4); RBC 3.49 10x6/uL (4.00-5.40); RDW 13.7 % (11.5-14.5); WBC 4.8 10x3/uL (4.8-10.8)
[2018-01-16 12:52] VITALS: BP 153/63; Ht 175.3 cm; Wt 60.0 kg
== END 2018-01-16 17:10 | disposition home or self-care (01) ==
LOC: D.OPS 11:28
PROVIDERS: Anesthesiology
DX: K22.10 Ulcer of esophagus without bleeding (principal); K44.9 Diaphragmatic hernia without obstruction or gangrene; K29.50 Unspecified chronic gastritis without bleeding; Z01.812 Encounter for preprocedural laboratory examination; K59.09 Other constipation

== ENCOUNTER 2018-11-07 16:42 | Emergency (ER) | payer MEDICARE, OTHER ==
[~2018-11-07] VITALS: Ht 175.3 cm; Wt 65.0 kg
[2018-11-07 16:47] VITALS: Ht 175.3 cm; Wt 65.0 kg
[2018-11-07 18:41] LABS: BASOPHILS 0.2 % (0-2); EOSINOPHILS 4.4 % (0-7); HEMATOCRIT 29.2 % (36.0-48.0); HEMOGLOBIN 9.8 g/dL (12-16); IMMATURE GRANULOCYTES 0.4 % (0-5); MCH 30.9 pg (26.0-34.0); MCHC 33.6 g/dL (31.0-37.0); MCV 92.1 fL (80.0-100.0); MEAN PLATELET VOLUME 10.8 fL (7.4-10.4); PLATELET COUNT 207 10x3/uL (130-400); RBC 3.17 10x6/uL (4.00-5.40); RDW 13.4 % (11.5-14.5)
[2018-11-07 19:05] LABS: ALBUMIN 3.1 g/dL (3.4-5.0); ANION GAP 9.7 mmol/L (8-16); BILIRUBIN - TOTAL 0.27 mg/dL (0.2-1.3); CALCIUM 8.8 mg/dL (8.5-10.1); CARBON DIOXIDE 28.7 mmol/L (21.0-32.0); POTASSIUM - SERUM 4.4 mmol/L (3.5-5.1); PROTEIN - SERUM 5.8 g/dL (6.4-8.2)
[2018-11-08 02:00] VITALS: BP 144/57
== END 2018-11-08 02:00 | disposition other institution (70) ==
LOC: D.ER 16:42
PROVIDERS: Family Medicine
DX: K94.23 Gastrostomy malfunction (principal); K86.1 Other chronic pancreatitis

== ENCOUNTER → 2019-02-27 19:35 | Outpatient (CLI) | payer MEDICARE, OTHER ==
[2018-11-07 16:47] VITALS: BMI 21.1
== END | disposition home or self-care (01) ==
LOC: D.LABREF 19:35
PROVIDERS: ATTEND Surgery
DX: K94.22 Gastrostomy infection (principal)

== ENCOUNTER → 2019-04-04 14:29 | Outpatient (CLI) | payer MEDICARE, OTHER ==
[2018-11-07 16:47] VITALS: BMI 21.1
== END | disposition home or self-care (01) ==
LOC: D.LABREF 14:29
PROVIDERS: ATTEND Surgery
DX: K94.23 Gastrostomy malfunction (principal)

== ENCOUNTER 2019-04-11 17:46 | Emergency (ER) | payer MEDICARE, OTHER ==
[~2019-04-11] VITALS: Ht 175.3 cm; Wt 68.2 kg
[2019-04-11 17:58] VITALS: Ht 175.3 cm; Wt 68.2 kg
[2019-04-11 20:42] VITALS: BP 154/58
== END 2019-04-11 20:42 | disposition home or self-care (01) ==
LOC: D.ER 17:46
DX: S82.401A Unspecified fracture of shaft of right fibula, initial encounter for closed fracture (principal); S93.402A Sprain of unspecified ligament of left ankle, initial encounter; W19.XXXA Unspecified fall, initial encounter; Y93.9 Activity, unspecified; Y92.9 Unspecified place or not applicable; I10 Essential (primary) hypertension; E78.5 Hyperlipidemia, unspecified

== ENCOUNTER 2019-07-10 15:16 | Inpatient (IN) | payer MEDICARE, OTHER ==
[~2019-07-10] VITALS: Ht 175.3 cm; Wt 66.7 kg
[~2019-07-10 15:16] MED LIST changes: +BACLOFEN10 MG PO; +DILAUDID4 MG PO; +DOXYCYCLINE HY100 M2 PO; +ELIQUIS2.5 MG PO; +LIDODERM 5 %1 PATCH TRANSDERM; +NALOXONE 4 MG INH
--- NOTE | 2019-07-10 16:19 | NUR ---
PT URINE COLLECTED AND SENT TO LAB VIA TUBE SYSTEM.
[2019-07-10 16:31] LABS: BILIRUBIN NEGATIVE (NEGATIVE); GLUCOSE NEGATIVE (NEGATIVE); KETONE NEGATIVE (NEGATIVE); NITRITE POSITIVE (NEGATIVE); UROBILINOGEN NORMAL (NORMAL)
[2019-07-10 16:32] LABS: EPITHELIAL CELLS 0-5 /hpf (0-5); RED CELLS - URINE 0-5 /hpf (0-5); WHITE CELLS - URINE 0-5 /hpf (NEGATIVE)
[2019-07-10 16:33] LABS: BACTERIA MODERATE /hpf (NEGATIVE)
[2019-07-10 17:23] LABS: BASOPHILS 0.2 % (0-2); EOSINOPHILS 2.8 % (0-7); HEMATOCRIT 28.7 % (36.0-48.0); HEMOGLOBIN 9.2 g/dL (12-16); IMMATURE GRANULOCYTES 0.4 % (0-5); LYMPHOCYTES 20.7 % (15-50); MCH 28.7 pg (26.0-34.0); MCHC 32.1 g/dL (31.0-37.0); MCV 89.4 fL (80.0-100.0); MEAN PLATELET VOLUME 10.6 fL (7.4-10.4); NEUTROPHILS 64.9 % (40-80); PLATELET COUNT 167 10x3/uL (130-400); RBC 3.21 10x6/uL (4.00-5.40); RDW 13.4 % (11.5-14.5); WBC 4.9 10x3/uL (4.8-10.8)
[2019-07-10 17:28] VITALS: BP 152/74
[2019-07-10 17:33] LABS: CALC OSMOLALITY 278 mosm/kg (275-300); CALCIUM 7.3 mg/dL (8.5-10.1); CARBON DIOXIDE 22.9 mmol/L (21.0-32.0); CHLORIDE - SERUM 106 mmol/L (98-107); CREATININE - SERUM 0.8 mg/dL (0.6-1.3); GLUCOSE 96 mg/dL (74-106); POTASSIUM - SERUM 3.4 mmol/L (3.5-5.1); SODIUM 139 mmol/L (136-145); UREA NITROGEN 16 mg/dL (7-18); eGFR NON AFRICAN AMERICAN 77 mL/min (90-120)
[2019-07-10 17:47] LABS: ALBUMIN 2.1 g/dL (3.4-5.0); ALKALINE PHOSPHATASE 168 U/L (30-120); ALT (SGPT) 30 U/L (10-68); BILIRUBIN - TOTAL 0.43 mg/dL (0.2-1.3); MAGNESIUM - SERUM 1.6 mg/dL (1.8-2.4); PROTEIN - SERUM 4.8 g/dL (6.4-8.2); THYROID STIMULATING HORMONE 4.12 uIU/mL (0.36-3.74)
[2019-07-10 20:04] VITALS: BP 148/70
[2019-07-10 21:54] VITALS: BP 122/49; BMI 21.7
--- NOTE | 2019-07-11 03:32 | NUR ---
PATENT ALERT AND ORENTED WITH SOME CONFUSION NOTED AT TIMES. IV TO LEFT BREAST . WALKING BOOT TO RIGHT FOOT. PEG -TUB IN PLACE TO ABD. TELEMETRY IN PLACE 79 SR. STATED HAS C-PAP AT HOME. SCD IN PLACE. CALL LIGHT AND WATER IN REACH.
[2019-07-11 04:00] VITALS: BP 150/60
--- NOTE | 2019-07-11 07:11 | NUR ---
REFUSED AM LABS THIS AM.
[2019-07-11 09:31] VITALS: BP 158/64
--- NOTE | 2019-07-11 10:22 | NUR ---
SHE IS CONFUSED AT TIMES. HER CALLED TO CHECK ON HER. SHE IS ASKING ABOUT FOOD AFTER THE BREAKFAST TRAY HAD BEEN PICKED UP.
[2019-07-11 12:43] VITALS: Ht 175.3 cm; Wt 66.7 kg
[2019-07-11 13:29] VITALS: BP 149/68
[2019-07-11 17:50] VITALS: BP 153/62
--- NOTE | 2019-07-11 19:37 | NUR ---
I SPOKE WITH DR. PRADO REGARDING A CONSULT, HE SAID DR. ROSS WAS GETTING THE CONSULTS. I CALLED THE OFFICE AROUND 3:15 TODAY AND LEFT A MESSAGE WITH HIS CALL CENTER REGARDING A CONSULT ABOUT HER PEG TUBE SITE.
[2019-07-11 20:00] VITALS: BP 137/53
--- NOTE | 2019-07-12 03:59 | NUR ---
I have reviewed this patient and I concur with the Shift Assessment completed by the Licensed Practical Nurse today this shift.
[2019-07-12 04:00] VITALS: BP 146/59
--- NOTE | 2019-07-12 04:05 | NUR ---
PT RESTING IN BED. EYES CLOSED. NO SIGNS OF DISTRESS. BREATHING EVEN AND UNLABORED. IV SITE RT FA DRESSING CLEAN DRY AND INTACT. NO SIGNS OF INFECTION. NO SIGNS OF INFULTRATION. SKIN CLEAN DRY AND INTACT. LUNG SOUNDS CLEAR. BOWEL SOUNDS ACTIVE. WILL CONTINUE PLAN OF CARE. CALL LIGHT IN REACH. BED LOWERED AND LOCKED. BED RAILSX2
[2019-07-12 06:38] LABS: ALBUMIN 2.1 g/dL (3.4-5.0); ALKALINE PHOSPHATASE 141 U/L (30-120); ALT (SGPT) 24 U/L (10-68); BILIRUBIN - TOTAL 0.25 mg/dL (0.2-1.3); CALC OSMOLALITY 283 mosm/kg (275-300); CALCIUM 7.5 mg/dL (8.5-10.1); CARBON DIOXIDE 21.2 mmol/L (21.0-32.0); CHLORIDE - SERUM 109 mmol/L (98-107); CREATININE - SERUM 0.8 mg/dL (0.6-1.3); GLUCOSE 113 mg/dL (74-106); MAGNESIUM - SERUM 1.8 mg/dL (1.8-2.4); PHOSPHOROUS 2.9 mg/dL (2.5-4.9); POTASSIUM - SERUM 3.7 mmol/L (3.5-5.1); PROTEIN - SERUM 4.6 g/dL (6.4-8.2); SODIUM 142 mmol/L (136-145); UREA NITROGEN 13 mg/dL (7-18); eGFR NON AFRICAN AMERICAN 77 mL/min (90-120)
[2019-07-12 07:06] LABS: HEMATOCRIT 29.5 % (36.0-48.0); HEMOGLOBIN 9.4 g/dL (12-16); MCH 29.5 pg (26.0-34.0); MCHC 31.9 g/dL (31.0-37.0); PLATELET COUNT 172 10x3/uL (130-400); RBC 3.19 10x6/uL (4.00-5.40); RDW 14.1 % (11.5-14.5); WBC 4.2 10x3/uL (4.8-10.8)
[2019-07-12 07:21] LABS: MCV 92.5 fL (80.0-100.0)
[2019-07-12 07:59] VITALS: BP 166/87
--- NOTE | 2019-07-12 09:00 | NUR ---
ALERT AND ORIENTED TO SELF ONLY BUT PLEASANTLY CONFUSED AND REORIENTED TO USE CALL LIGHT FOR ASSSIT WITH FALL PRECAUTIONS IN PLACE. ASSSITED UP TO BATHROOM WITH WALKER. TELEMETRY INTACT.IV INTACT TO RT. F/A WITH NO S/S OF INFECTION/INFLITRATION. LUNGS CTA AND HRRR. TYLENOL GIVEN FOR H/A AND EFFECTIVE.
[2019-07-12 10:45] LABS: ANISOCYTOSIS OCC; HYPOCHROMASIA OCC; LYMPHOCYTES 30 % (15-50); MONOCYTES 7 % (2-11); NEUTROPHILS 63 % (40-80); PLATELET ESTIMATE NORMAL; ROULEAUX OCC
[2019-07-12 12:02] VITALS: BP 165/69
[2019-07-12 15:39] VITALS: BP 167/70
--- NOTE | 2019-07-12 19:15 | NUR ---
PATIENT ALERT AND ORIENTED TO SELF, PLACE, AND SITUATION. PATIENT HAS G TUBE TO THE ABDOMEN THAT IS NOT IN CURRENT USE AND HAS EXCORIATION. PATIENT STATES IT "FEELS BETTER WITH THE CREAM" REFERRNIG TO THE [place]STATIN CREAM. PATIENT HAS HYPOACTIVE BOWEL SOUNDS. SCABS, SORES, AND BRUISES TO BILATERAL LOWER EXTREMETIES. DENIES PAIN AT THIS TIME. WALKER AT BEDSIDE. PATIENT USES. CALL LIGHT CLOSE TO PATIENT. USES APPROPRIATELY. CPOC.
[2019-07-12 20:00] VITALS: BP 161/71
[2019-07-13] VITALS: BP 148/71
--- NOTE | 2019-07-13 00:45 | NUR ---
RESTING WITH NO SIGNS OR SYMPTOMS OF DISTRESS AT THIS TIME. CALL LIGHT CLOSE. CPOC.
[2019-07-13 04:00] VITALS: BP 177/76
[2019-07-13 05:50] LABS: BASOPHILS 0.2 % (0-2); EOSINOPHILS 1.6 % (0-7); HEMOGLOBIN 9.8 g/dL (12-16); IMMATURE GRANULOCYTES 0.7 % (0-5); LYMPHOCYTES 22.1 % (15-50); MCHC 31.6 g/dL (31.0-37.0); MCV 91.7 fL (80.0-100.0); MEAN PLATELET VOLUME 11.4 fL (7.4-10.4); NEUTROPHILS 67.4 % (40-80); RBC 3.38 10x6/uL (4.00-5.40); RDW 14.2 % (11.5-14.5)
[2019-07-13 05:54] LABS: PLATELET COUNT 215 10x3/uL (130-400); WBC 5.5 10x3/uL (4.8-10.8)
[2019-07-13 06:19] LABS: ALKALINE PHOSPHATASE 138 U/L (30-120); ALT (SGPT) 18 U/L (10-68); BILIRUBIN - TOTAL 0.19 mg/dL (0.2-1.3); CALCIUM 7.5 mg/dL (8.5-10.1); CARBON DIOXIDE 24.5 mmol/L (21.0-32.0); CHLORIDE - SERUM 109 mmol/L (98-107); CREATININE - SERUM 0.7 mg/dL (0.6-1.3); GLUCOSE 119 mg/dL (74-106); MAGNESIUM - SERUM 1.9 mg/dL (1.8-2.4); POTASSIUM - SERUM 3.8 mmol/L (3.5-5.1); PROTEIN - SERUM 4.4 g/dL (6.4-8.2); SODIUM 141 mmol/L (136-145); eGFR NON AFRICAN AMERICAN 90 mL/min (90-120)
[2019-07-13 06:25] LABS: CALC OSMOLALITY 283 mosm/kg (275-300); UREA NITROGEN 18 mg/dL (7-18)
--- NOTE | 2019-07-13 07:57 | NUR ---
ALERT AND ORIENTED X4. IMPROVED COGNITION THIS MORNING AND STATES PEG SITE FEELS BETTER. BOWEL SOUNDS NOTED X4. GOOD ROM OF EXT. TELEMETRY INTACT AND DENIES ANY CHEST PAIN OR DISCOMFORT. HRRR AND LUNGS CTA. PHOSPHORUS REPLACED PER PROTOCOL. ENCOURAGED TO USE CALL LIGHT FOR ASSSIT WITH FALL PRECAUTIONS IN PLACE. IV INTACT TO RT. F/A.
[2019-07-13 08:00] VITALS: BP 159/68
[2019-07-13 12:05] VITALS: BP 152/73
[2019-07-13] MEDS ORDERED: EFFEXOR50 MG PO (14:01)
[2019-07-13] MEDS ORDERED: NYSTATIN OINTME15 GM TOPICAL (14:04)
[2019-07-13] MEDS ORDERED: RISPERDAL1 MG PO (14:06)
[2019-07-13] MEDS ORDERED: OMNICEF300 MG PO (15:10)
--- NOTE | 2019-07-13 16:24 | NUR ---
IV DISCONTINUED AND VERBALIZED UNDERSTANDING OF DISCHARGE INSTRUCTIONS. STABLE AT TIME OF DISCHARGE
--- NOTE | 2019-07-14 09:09 | MORECARE ---
CASE MANAGEMENT DISCHARGE SUMMARY PATIENT: BRANDIE PRIEST UNIT: [id number] ADM DATE: 07/11/19 AGE: 63 : 57 SEX: F ROOM/BED: D.2222 AUTHOR: JENNYFER LUX PHYSICIAN: REFERRING PHYSICIAN: ALMA STOREY MD DATE OF SERVICE: 07/14/19 Discharge Plan Patient Name: BRANDIE PRIEST Facility: [facility]:[place] : 1955 Planned Disposition: Home with Home Health Anticipated Discharge Date: Discharge Date: 07/13/2019 Expected LOS: Initial Reviewer: [email or web address] Initial Review Date: 07/10/2019 Generated: 07/14/19 10:08 am DCPIA - Discharge Planning Initial Assessment Updated by [email or web address]: Jocelyn Argueta on 07/14/19 9:07 am * Is the patient Alert and Oriented? Yes * How many steps to enter\exit or inside your home? * PCP Naveen * [facility] * Preadmission Environment Home with Family * ADLs Independent * Other Equipment walker, w/c , cane * List name and contact numbers for known caregivers / representatives who currently or will assist patient after discharge: Prashant priest - [phone] * Verbal permission to speak to the caregivers and representatives has been obtained from the patient. Yes * Community resources currently utilized Home Health * Please name any agencies selected above. [facility] * Additional services required to return to the preadmission environment? No * Can the patient safely return to the preadmission environment? Yes * Has this patient been hospitalized within the prior 30 days at any hospital? No Coverage Notice Reviewer: [email or web address] - Jocelyn Argueta Notice Issued Date-Time: 07/13/2019 14:50 Notice Type: IM Discharge Notice Notice Delivered To: Patient Relationship to Patient: Self Mechanical Facilities Technician Name: Delivery Method: HAND - Hand Delivered Katrin Days: Prior Verbal Notification: Recipient Understood Notice: Yes Recipient Signature: Yes Med Rec Note Co-signed by Attending: Coverage Notice Comment: Patient Name: BRANDIE PRIEST Page [id number] at 0909 All edits/amendments must be made on the electronic document DICTATION DATE: 07/14/19907 RESOLUTION SPECIALIST: DM 07/14/19907 RPT#: [id number] DC DATE:07/13/19 STATUS: DIS IN [facility] [address] [place] [address] END OF REPORT
--- NOTE | 2019-07-14 09:15 | MORECARE ---
CASE MANAGEMENT DISCHARGE SUMMARY PATIENT: BRANDIE PRIEST UNIT: [id number] ADM DATE: 07/11/19 AGE: 63 : 57 SEX: F ROOM/BED: D.2222 AUTHOR: JOSE J,DOC PHYSICIAN: REFERRING PHYSICIAN: ALMA STOREY MD DATE OF SERVICE: 07/14/19 Discharge Plan Patient Name: BRANDIE PRIEST Facility: [facility]:[place] : 1955 Planned Disposition: Home with Home Health Anticipated Discharge Date: Discharge Date: 07/13/2019 Expected LOS: Initial Reviewer: [email or web address] Initial Review Date: 07/10/2019 Generated: 07/14/19 10:15 am Comments DCP- Discharge Planning Updated by [email or web address]: Jocelyn Argueta on 07/14/19 8:[address] late entry 07/13/19 Patient Name: BRANDIE PRIEST Admission Status: ER Accout number: [id number] Admission Date: 07-11-2019 : 1955 Admission Diagnosis:URINARY TRACT INFECTION, SITE NOT SPECIFIED Attending: ALMA STOREY Current LOS: 2 Anticipated DC Date: Planned Disposition: Home with Home Health Primary Insurance: MEDICARE A & B Discharge Planning Comments: CM met with patient to discuss discharge planning after obtaining verbal consent. Patient lives at home with family and plans to return there upon discharge. Patient states that she has all medical equipment that she needs. Patient states that she has home health with [facility] and plans to resume care with them. Patient denies any discharge needs at this time. D/C IMM signed. CM gave patient information on [facility] walk-in clinics. CM will continue to follow and assist as needed with discharge planning / needs. Horse Stud Worker: Jocelyn Argueta DCPIA - Discharge Planning Initial Assessment Updated by [email or web address]: Jocelyn Argueta on 07/14/19 9:07 am * Is the patient Alert and Oriented? Yes * How many steps to enter\exit or inside your home? * PCP Naveen * [facility] * Preadmission Environment Home with Family * ADLs Independent * Other Equipment walker, w/c , cane * List name and contact numbers for known caregivers / representatives who currently or will assist patient after discharge: Prashant Xie [phone] * Verbal permission to speak to the caregivers and representatives has been obtained from the patient. Yes * Community resources currently utilized Home Health * Please name any agencies selected above. [facility] * Additional services required to return to the preadmission environment? No * Can the patient safely return to the preadmission environment? Yes * Has this patient been hospitalized within the prior 30 days at any hospital? No Coverage Notice Reviewer: [email or web address] Anne-Marie Argueta Notice Issued Date-Time: 07/13/2019 14:50 Notice Type: IM Discharge Notice Notice Delivered To: Patient Relationship to Patient: Self Fence Machine Operator Name: Delivery Method: HAND - Hand Delivered Katrin Days: Prior Verbal Notification: Recipient Understood Notice: Yes Recipient Signature: Yes Med Rec Note Co-signed by Attending: Coverage Notice Comment: Last DP export: 07/14/19 8:09 am Patient Name: BRANDIE PRIEST Page [id number] at 0915 All edits/amendments must be made on the electronic document DICTATION DATE: 07/14/19914 VISUAL COMMUNICATIONS INSTRUCTOR: GARCÍA 07/14/19914 RPT#: [id number] DC DATE:07/13/19 STATUS: DIS IN [facility] [address] [place] [address] END OF REPORT
--- NOTE | 2019-07-14 16:26 | CN ---
PATIENT NAME:BRANDIE GEIGER MEDICAL RECORD: [id number] : 57 LOCATION:D.MS [address] ADMIT DATE: 07/11/19 ACCOUNT: [id number] CONSULTING PHYSICIAN: CATALINA OLIVER MD REFERRING PHYSICIAN: ALMA STOREY MD DATE OF CONSULTATION: 07/11/2019 IDENTIFYING DATA: The patient is 63 years old and she is admitted to the hospital secondary to urinary tract infection. CHIEF COMPLAINT: Psychotic symptoms. HISTORY OF PRESENT ILLNESS: The patient tells me she has had some active hallucinations since stopping her Seroquel. The description she gives is not consistent with bipolar disorder or schizophrenia. Assuming that the hallucinations are being truthfully reported it would be more consistent with a delirium secondary to multiple medical factors. She endorses a number of depressive symptoms, but then denies that she would seek to harm herself or others. ASSESSMENT: 1. Major depression. 2. Psychotic symptoms of uncertain etiology, possibly delirium. PLAN: At this time, treating the patient with a low dose of an antipsychotic medication is a reasonable step. In addition to this, I am going to give her an antidepressant. I would recommend that she be followed on an outpatient basis by mental health until she is stabilized and then it would be perfectly reasonable for her to return to her primary care physician for ongoing pharmacologic management. TRANSINT:[id number] Voice Confirmation ID: [id number] DOCUMENT ID: [id number] CATALINA OLIVER MD at 1626 CC: [id number] DICTATION DATE: 07/11/19 174 ASSEMBLER GOLD FRAME: 07/11/19 2322 DIS IN 07/13/19 [place] [id number] [place] [address]
--- NOTE | 2019-07-15 14:09 | MORECARE ---
CASE MANAGEMENT DISCHARGE SUMMARY PATIENT: BRANDIE PRIEST UNIT: [id number] ADM DATE: 07/11/19 AGE: 63 : 57 SEX: F ROOM/BED: D.2222 AUTHOR: JOSE J,DOC PHYSICIAN: REFERRING PHYSICIAN: ALMA STOREY MD DATE OF SERVICE: 07/15/19 Discharge Plan Patient Name: BRANDIE PRIEST Facility: [facility]:[place] : 1955 Planned Disposition: Home with Home Health Anticipated Discharge Date: Discharge Date: 07/13/2019 Expected LOS: Initial Reviewer: [email or web address] Initial Review Date: 07/10/2019 Generated: 07/15/19 3:08 pm Comments DCP- Discharge Planning Updated by [email or web address]: Jocelyn Argueta on 07/14/19 8:[address] late entry 07/13/19 Patient Name: BRANDIE PRIEST Admission Status: ER Accout number: [id number] Admission Date: 07-11-2019 : 1955 Admission Diagnosis:URINARY TRACT INFECTION, SITE NOT SPECIFIED Attending: ALMA STOREY Current LOS: 2 Anticipated DC Date: Planned Disposition: Home with Home Health Primary Insurance: MEDICARE A & B Discharge Planning Comments: CM met with patient to discuss discharge planning after obtaining verbal consent. Patient lives at home with family and plans to return there upon discharge. Patient states that she has all medical equipment that she needs. Patient states that she has home health with [facility] and plans to resume care with them. Patient denies any discharge needs at this time. D/C IMM signed. CM gave patient information on [facility] walk-in clinics. CM will continue to follow and assist as needed with discharge planning / needs. Home Support Worker: Jocelyn Argueta DCPIA - Discharge Planning Initial Assessment Updated by [email or web address]: Jocelyn Argueta on 07/14/19 9:07 am * Is the patient Alert and Oriented? Yes * How many steps to enter\exit or inside your home? * PCP Naveen * [facility] * Preadmission Environment Home with Family * ADLs Independent * Other Equipment walker, w/c , cane * List name and contact numbers for known caregivers / representatives who currently or will assist patient after discharge: Prashant Xie [phone] * Verbal permission to speak to the caregivers and representatives has been obtained from the patient. Yes * Community resources currently utilized Home Health * Please name any agencies selected above. [facility] * Additional services required to return to the preadmission environment? No * Can the patient safely return to the preadmission environment? Yes * Has this patient been hospitalized within the prior 30 days at any hospital? No External Providers External Provider: [facility] Next Contact Date: Service Request Date: Service Type: Resolution: Reviewer: Comments: Coverage Notice Reviewer: [id number] - Jocelyn Argueta Notice Issued Date-Time: 07/13/2019 14:50 Notice Type: IM Discharge Notice Notice Delivered To: Patient Relationship to Patient: Self Measurer Machine Name: Delivery Method: HAND - Hand Delivered Katrin Days: Prior Verbal Notification: Recipient Understood Notice: Yes Recipient Signature: Yes Med Rec Note Co-signed by Attending: Coverage Notice Comment: Last DP export: 07/14/19 8:15 am Patient Name: BRANDIE PRIEST Page [phone] at 1409 All edits/amendments must be made on the electronic document DICTATION DATE: 07/15/19 1409 SURVEY CHIEF: GARCÍA 07/15/19 1409 RPT#: [id number] DC DATE:07/13/19 STATUS: DIS IN [facility] [address] [place] [address] END OF REPORT
== END 2019-07-13 16:24 | disposition home health service (06) | DRG 689 ==
LOC: D.ER 15:16 → D.MS 18:44 → OBSVTIME 18:44 → D.MS 07-11 17:02
PROVIDERS: Family Medicine; ADMIT Family Medicine; ATTEND Family Medicine
DX: N39.0 Urinary tract infection, site not specified (principal); G93.41 Metabolic encephalopathy; F32.3 Major depressive disorder, single episode, severe with psychotic features; D64.9 Anemia, unspecified; E87.6 Hypokalemia; E03.9 Hypothyroidism, unspecified; I10 Essential (primary) hypertension; E78.5 Hyperlipidemia, unspecified; E83.119 Hemochromatosis, unspecified; G25.81 Restless legs syndrome; F43.12 Post-traumatic stress disorder, chronic; K31.84 Gastroparesis

== ENCOUNTER 2019-07-19 19:58 | Emergency (ER) | payer MEDICARE, OTHER ==
[~2019-07-19] VITALS: Ht 175.3 cm; Wt 60.9 kg
[~2019-07-19 19:58] MED LIST changes: +EFFEXOR50 MG PO; +NYSTATIN OINTME15 GM TOPICAL; +OMNICEF300 MG PO; +RISPERDAL1 MG PO
[2019-07-19 20:07] VITALS: Ht 175.3 cm; Wt 60.9 kg
[2019-07-19 21:44] VITALS: BP 125/65
== END 2019-07-19 21:34 | disposition home or self-care (01) ==
LOC: D.ER 19:58
DX: K94.23 Gastrostomy malfunction (principal); I10 Essential (primary) hypertension; K21.9 Gastro-esophageal reflux disease without esophagitis

== ENCOUNTER 2019-07-30 15:16 | Inpatient (IN) | payer MEDICARE, OTHER ==
[~2019-07-30] VITALS: Ht 175.3 cm; Wt 65.6 kg
[2019-07-30] MEDS ORDERED: KLONOPIN1 MG PO (15:49)
[2019-07-30] MEDS ORDERED: COLACE100 MG PO (15:50)
[2019-07-30] MEDS ORDERED: ESTRACE1 MG PO (15:50)
[2019-07-30] MEDS ORDERED: SKELAXIN800 MG PO (15:51)
[2019-07-30] MEDS ORDERED: FUROSEMIDE20 MG PO (15:51)
[2019-07-30] MEDS ORDERED: K-TAB10 MEQ PO (15:52)
[2019-07-30] MEDS ORDERED: SEROQUEL25 MG PO (15:52)
[2019-07-30] MEDS ORDERED: EFFEXOR50 MG PO (15:52)
[2019-07-30 16:45] LABS: BILIRUBIN NEGATIVE (NEGATIVE); GLUCOSE NEGATIVE (NEGATIVE); KETONE NEGATIVE (NEGATIVE); NITRITE NEGATIVE (NEGATIVE); UROBILINOGEN NORMAL (NORMAL)
[2019-07-30 16:51] LABS: RED CELLS - URINE 0-5 /hpf (0-5)
[2019-07-30 16:52] LABS: BACTERIA MANY /hpf (NEGATIVE)
[2019-07-30 17:00] LABS: BASOPHILS 0.2 % (0-2); EOSINOPHILS 3.3 % (0-7); HEMATOCRIT 34.3 % (36.0-48.0); HEMOGLOBIN 10.8 g/dL (12-16); IMMATURE GRANULOCYTES 0.2 % (0-5); LYMPHOCYTES 19.2 % (15-50); MCH 29.8 pg (26.0-34.0); MCHC 31.5 g/dL (31.0-37.0); MCV 94.8 fL (80.0-100.0); MEAN PLATELET VOLUME 11.3 fL (7.4-10.4); MONOCYTES 6.7 % (2-11); NEUTROPHILS 70.4 % (40-80); PLATELET COUNT 178 10x3/uL (130-400); RBC 3.62 10x6/uL (4.00-5.40); RDW 15.3 % (11.5-14.5); WBC 5.1 10x3/uL (4.8-10.8)
[2019-07-30 17:18] LABS: ANION GAP 11.3 mmol/L (8-16); CALCIUM 8.7 mg/dL (8.5-10.1); CARBON DIOXIDE 28.3 mmol/L (21.0-32.0); POTASSIUM - SERUM 3.6 mmol/L (3.5-5.1)
[2019-07-30 17:24] LABS: ALBUMIN 3.4 g/dL (3.4-5.0); BILIRUBIN - TOTAL 0.33 mg/dL (0.2-1.3); PROTEIN - SERUM 6.2 g/dL (6.4-8.2)
[2019-07-30 18:12] VITALS: BP 126/62
[2019-07-30 18:51] VITALS: BP 129/63
--- NOTE | 2019-07-30 19:20 | NUR ---
PT TO BED LOW AND LOCKED AND CALL LIGHT PROVIDED PT AT THIS TIME IS ALERT TO SELF PLACE AND SITUATION IV TO 100
--- NOTE | 2019-07-30 19:39 | NUR ---
JOHN REVELESGED TO COME SPEAK WITH THE PT LEAVES AT THIS TIME
--- NOTE | 2019-07-30 21:33 | NUR ---
DCED IV CATH INTACT BELIEVED INFILTRATED
[2019-07-31] VITALS: BP 107/45
--- NOTE | 2019-07-31 02:45 | NUR ---
restarted iv to left fam with 22 gauge
--- NOTE | 2019-07-31 03:44 | NUR ---
I have reviewed this patient and I concur with the Shift Assessment completed by the Licensed Practical Nurse today this shift.
[2019-07-31 04:00] VITALS: BP 105/45
[2019-07-31 05:53] LABS: BASOPHILS 0.3 % (0-2); EOSINOPHILS 4.3 % (0-7); HEMATOCRIT 30.6 % (36.0-48.0); HEMOGLOBIN 9.6 g/dL (12-16); IMMATURE GRANULOCYTES 0.3 % (0-5); LYMPHOCYTES 19.8 % (15-50); MCH 29.7 pg (26.0-34.0); MCHC 31.4 g/dL (31.0-37.0); MCV 94.7 fL (80.0-100.0); MEAN PLATELET VOLUME 11.9 fL (7.4-10.4); MONOCYTES 9.5 % (2-11); NEUTROPHILS 65.8 % (40-80); PLATELET COUNT 150 10x3/uL (130-400); RBC 3.23 10x6/uL (4.00-5.40); RDW 15.3 % (11.5-14.5)
[2019-07-31 06:19] LABS: WBC 3.5 10x3/uL (4.8-10.8)
[2019-07-31 06:35] LABS: ALBUMIN 2.7 g/dL (3.4-5.0); ANION GAP 8.7 mmol/L (8-16); BILIRUBIN - TOTAL 0.33 mg/dL (0.2-1.3); CALCIUM 8.4 mg/dL (8.5-10.1); CARBON DIOXIDE 28.2 mmol/L (21.0-32.0); CREATININE - SERUM 0.9 mg/dL (0.6-1.3); MAGNESIUM - SERUM 2.1 mg/dL (1.8-2.4); POTASSIUM - SERUM 3.9 mmol/L (3.5-5.1); PROTEIN - SERUM 5.1 g/dL (6.4-8.2); THYROID STIMULATING HORMONE 4.01 uIU/mL (0.36-3.74)
[2019-07-31 09:24] VITALS: BP 119/45
[2019-07-31 11:43] VITALS: BP 122/47
[2019-07-31 13:11] VITALS: Ht 175.3 cm; Wt 65.6 kg
--- NOTE | 2019-07-31 14:39 | MORECARE ---
CASE MANAGEMENT DISCHARGE SUMMARY PATIENT: BRANDIE SWAIN UNIT: [id number] ADM DATE: 07/30/19 AGE: 63 : 57 SEX: F ROOM/BED: D.1346 AUTHOR: JOSE J,DOC PHYSICIAN: REFERRING PHYSICIAN: JULIAN SANTOS MD DATE OF SERVICE: 07/31/19 Discharge Plan Patient Name: BRANDIE SWAIN Facility: [facility]:[place] : 1955 Planned Disposition: Home with Home Health Anticipated Discharge Date: Discharge Date: Expected LOS: Initial Reviewer: [id number] Initial Review Date: 07/31/2019 Generated: 07/31/19 3:38 pm DCP- Discharge Planning Updated by [id number]: Pat Sosa on 07/31/19 1:[address] Patient Name: BRANDIE SWAIN Admission Status: ER Accout number: [id number] Admission Date: 07-30-2019 : 1955 Admission Diagnosis: Attending: JULIAN SANTOS Current LOS: 1 Anticipated DC Date: Planned Disposition: Home with Home Health Primary Insurance: MEDICARE A & B Discharge Planning Comments: CM received a message from patient's to call him regarding discharge needs. I spoke with the patient and she states it is ok to speak with her . She gives me her history and explains that she has been through a lot of medical problems lately. States she recently spent almost 100 days at [facility]. States "I think I am sleep deprived." States her plan is to return home with [facility]. States they come once a week for nursing. I spoke with patient's on the phone and he is asking about private care. I explained that private care is self pay and a list left in patient room and also I gave him some numbers to call for questions about private care. I spoke with Marisol with [facility] and they will accept her back on discharge. I informed Marisol that she may need assistance with private care, she will help them look into the possibility. Marisol states she will see if she qualifies for ST /OT/PT on discharge as well when they re evaluate her. CM will continue to follow and assist with discharge planning/needs. Filler Wiper: Pat Sosa DCPIA - Discharge Planning Initial Assessment Updated by [id number]: Pat Sosa on 07/31/19 2:20 pm * Is the patient Alert and Oriented? Yes * How many steps to enter\\exit or inside your home? 0/0 * PCP Dr. Hodge * Pharmacy [facility] on [address] * Preadmission Environment Home with Family * ADLs Partial Dependent * Partial ADLs (Assistance needed) Ambulation Bathing * Equipment CPAP Enteral Feeding and Supplies Shower Chair Walker Wheelchair * List name and contact numbers for known caregivers / representatives who currently or will assist patient after discharge: Prashant jules - [phone] * Verbal permission to speak to the caregivers and representatives has been obtained from the patient. Yes * Community resources currently utilized [facility] * Please name any agencies selected above. [facility] [place] for feeding supplies * Additional services required to return to the preadmission environment? No * Can the patient safely return to the preadmission environment? Yes * Has this patient been hospitalized within the prior 30 days at any hospital? Yes Coverage Notice Reviewer: [id number] - Pat Sosa Notice Issued Date-Time: 07/31/2019 14:27 Notice Type: Patient Choice Letter Notice Delivered To: Patient Relationship to Patient: Self Manager City Name: Delivery Method: HAND - Hand Delivered Katrin Days: Prior Verbal Notification: Recipient Understood Notice: Yes Recipient Signature: Yes Med Rec Note Co-signed by Attending: Coverage Notice Comment: janessa for [facility] Patient Name: BRANDIE SWAIN Page [id number] at 1439 All edits/amendments must be made on the electronic document DICTATION DATE: 07/31/191437 CHILD WELFARE MANAGER: GARCÍA 07/31/191437 RPT#: [id number] ND DATE: STATUS: ADM IN [facility] [address] [place] [address] END OF REPORT
--- NOTE | 2019-07-31 15:28 | NUR ---
I have reviewed this patient and I concur with the Shift Assessment completed by the Licensed Practical Nurse today this shift.
[2019-07-31 17:01] VITALS: BP 128/54
--- NOTE | 2019-07-31 19:30 | NUR ---
PT IN BED, AAO X 3, RESP EVEN AND UNLABORED. NO DISTRESS NOTED, CL IN REACH, SR UP X 2.
[2019-07-31 20:00] VITALS: BP 128/54
[2019-08-01] VITALS: BP 137/60
--- NOTE | 2019-08-01 03:33 | NUR ---
PT REFUSES TO PUT TELEMETRY UNIT BACK ON AT THIS TIME.
[2019-08-01 04:00] VITALS: BP 142/69
[2019-08-01 06:35] LABS: BASOPHILS 0.3 % (0-2); EOSINOPHILS 4.3 % (0-7); HEMATOCRIT 31.1 % (36.0-48.0); HEMOGLOBIN 10.1 g/dL (12-16); IMMATURE GRANULOCYTES 0.5 % (0-5); LYMPHOCYTES 15.8 % (15-50); MCH 30.1 pg (26.0-34.0); MCHC 32.5 g/dL (31.0-37.0); MCV 92.8 fL (80.0-100.0); MEAN PLATELET VOLUME 12.3 fL (7.4-10.4); MONOCYTES 8.6 % (2-11); NEUTROPHILS 70.5 % (40-80); PLATELET COUNT 158 10x3/uL (130-400); RBC 3.35 10x6/uL (4.00-5.40); RDW 15.1 % (11.5-14.5); WBC 3.7 10x3/uL (4.8-10.8)
[2019-08-01 06:55] LABS: CALC OSMOLALITY 287 mosm/kg (275-300); CALCIUM 8.4 mg/dL (8.5-10.1); CARBON DIOXIDE 27.2 mmol/L (21.0-32.0); CHLORIDE - SERUM 111 mmol/L (98-107); CREATININE - SERUM 0.8 mg/dL (0.6-1.3); GLUCOSE 105 mg/dL (74-106); POTASSIUM - SERUM 4.3 mmol/L (3.5-5.1); SODIUM 144 mmol/L (136-145); UREA NITROGEN 14 mg/dL (7-18); eGFR NON AFRICAN AMERICAN 77 mL/min (90-120)
[2019-08-01] MEDS ORDERED: LEVOFLOXACIN500 MG PO (10:06)
[2019-08-01 10:27] VITALS: BP 151/50
--- NOTE | 2019-08-01 10:38 | MORECARE ---
CASE MANAGEMENT DISCHARGE SUMMARY PATIENT: BRANDIE SWAIN UNIT: [id number] ADM DATE: 07/30/19 AGE: 63 : 57 SEX: F ROOM/BED: D.1026 AUTHOR: JOSE J,DOC PHYSICIAN: REFERRING PHYSICIAN: JULIAN SANTOS MD DATE OF SERVICE: 08/01/19 Discharge Plan Patient Name: BRANDIE SWAIN Facility: [facility]:[place] : 1955 Planned Disposition: Home with Home Health Anticipated Discharge Date: Discharge Date: Expected LOS: Initial Reviewer: [email or web address] Initial Review Date: 07/31/2019 Generated: 08/01/19 11:37 am DCP- Discharge Planning Updated by [id number]: Pat Sosa on 07/31/19 1:[address] Patient Name: BRANDIE SWAIN Admission Status: ER Accout number: [id number] Admission Date: 07-30-2019 : 1955 Admission Diagnosis: Attending: JULIAN SANTOS Current LOS: 1 Anticipated DC Date: Planned Disposition: Home with Home Health Primary Insurance: MEDICARE A & B Discharge Planning Comments: CM received a message from patient's to call him regarding discharge needs. I spoke with the patient and she states it is ok to speak with her . She gives me her history and explains that she has been through a lot of medical problems lately. States she recently spent almost 100 days at [facility]. States "I think I am sleep deprived." States her plan is to return home with [facility]. States they come once a week for nursing. I spoke with patient's on the phone and he is asking about private care. I explained that private care is self pay and a list left in patient room and also I gave him some numbers to call for questions about private care. I spoke with Marisol with [facility] and they will accept her back on discharge. I informed Marisol that she may need assistance with private care, she will help them look into the possibility. Marisol states she will see if she qualifies for ST /OT/PT on discharge as well when they re evaluate her. CM will continue to follow and assist with discharge planning/needs. Stock Controller: Pat Sosa DCPIA - Discharge Planning Initial Assessment Updated by [id number]: Pat Sheila on 07/31/19 2:20 pm * Is the patient Alert and Oriented? Yes * How many steps to enter\\exit or inside your home? 0/0 * PCP Dr. Hodge * Pharmacy [facility] [address] * Preadmission Environment Home with Family * ADLs Partial Dependent * Partial ADLs (Assistance needed) Ambulation Bathing * Equipment CPAP Enteral Feeding and Supplies Shower Chair Walker Wheelchair * List name and contact numbers for known caregivers / representatives who currently or will assist patient after discharge: Prashant jules - [phone] * Verbal permission to speak to the caregivers and representatives has been obtained from the patient. Yes * Community resources currently utilized [facility] * Please name any agencies selected above. [facility] [place] for feeding supplies * Additional services required to return to the preadmission environment? No * Can the patient safely return to the preadmission environment? Yes * Has this patient been hospitalized within the prior 30 days at any hospital? Yes External Providers External Provider: [facility] Next Contact Date: Service Request Date: Service Type: Resolution: Reviewer: Comments: Coverage Notice Reviewer: [id number] - Pat Sosa Notice Issued Date-Time: 07/31/2019 14:27 Notice Type: Patient Choice Letter Notice Delivered To: Patient Relationship to Patient: Self Thimble Press Operator Name: Delivery Method: HAND - Hand Delivered Katrin Days: Prior Verbal Notification: Recipient Understood Notice: Yes Recipient Signature: Yes Med Rec Note Co-signed by Attending: Coverage Notice Comment: janessa for [facility] Last DP export: 07/31/19 1:39 p Patient Name: BRANDIE SWAIN Page 13472 at 1038 All edits/amendments must be made on the electronic document DICTATION DATE: 08/01/19 1037 PONY CYLINDER PRESS OPERATOR: GARCÍA 08/01/19 1037 RPT#: [id number] DC DATE: STATUS: ADM IN [facility] [address] [place] [address] END OF REPORT
--- NOTE | 2019-08-01 10:45 | MORECARE ---
CASE MANAGEMENT DISCHARGE SUMMARY PATIENT: BRANDIE SWAIN UNIT: [id number] ADM DATE: 07/30/19 AGE: 63 : 57 SEX: F ROOM/BED: D.9961 AUTHOR: JOSE J,DOC PHYSICIAN: REFERRING PHYSICIAN: JULIAN SANTOS MD DATE OF SERVICE: 08/01/19 Discharge Plan Patient Name: BRANDIE SWAIN Facility: [facility]:[place] : 1955 Planned Disposition: Home with Home Health Anticipated Discharge Date: Discharge Date: Expected LOS: Initial Reviewer: [id number] Initial Review Date: 07/31/2019 Generated: 08/01/19 11:45 am Comments DCP- Discharge Planning Updated by [id number]: Pat Sosa on 08/01/19 9:[address] CM received a call from Michelle from [facility]. Michelle states that they will not be able to accept patient back at discharge. Michelle states they [facility] nurse on staff. I spoke with the patient and she signs JANESSA for [facility]. I called and spoke with the intake person at [facility] and clinical faxed. She states she will give clinical to [place] to review and return call. CM will continue to follow and assist with discharge planning/needs. DCP- Discharge Planning Updated by [id number]: Patcorey Sosa on 07/31/19 1:[address] Patient Name: BRANDIE SWAIN Admission Status: ER Accout number: [id number] Admission Date: 07-30-2019 : 1955 Admission Diagnosis: Attending: JULIAN SANTOS Current LOS: 1 Anticipated DC Date: Planned Disposition: Home with Home Health Primary Insurance: MEDICARE A & B Discharge Planning Comments: CM received a message from patient's to call him regarding discharge needs. I spoke with the patient and she states it is ok to speak with her . She gives me her history and explains that she has been through a lot of medical problems lately. States she recently spent almost 100 days at [facility]. States "I think I am sleep deprived." States her plan is to return home with [facility]. States they come once a week for nursing. I spoke with patient's on the phone and he is asking about private care. I explained that private care is self pay and a list left in patient room and also I gave him some numbers to call for questions about private care. I spoke with Marisol with [facility] and they will accept her back on discharge. I informed Marisol that she may need assistance with private care, she will help them look into the possibility. Marisol states she will see if she qualifies for ST /OT/PT on discharge as well when they re evaluate her. CM will continue to follow and assist with discharge planning/needs. Popped Corn Oven Attendant: Pat Sosa DCPIA - Discharge Planning Initial Assessment Updated by [id number]: Pat Sosa on 07/31/19 2:20 pm * Is the patient Alert and Oriented? Yes * How many steps to enter\\exit or inside your home? 0/0 * PCP Dr. Hodge * Pharmacy [facility] [address] * Preadmission Environment Home with Family * ADLs Partial Dependent * Partial ADLs (Assistance needed) Ambulation Bathing * Equipment CPAP Enteral Feeding and Supplies Shower Chair Walker Wheelchair * List name and contact numbers for known caregivers / representatives who currently or will assist patient after discharge: Prashant [facility] - [phone] * Verbal permission to speak to the caregivers and representatives has been obtained from the patient. Yes * Community resources currently utilized [facility] * Please name any agencies selected above. [facility] for feeding supplies * Additional services required to return to the preadmission environment? No * Can the patient safely return to the preadmission environment? Yes * Has this patient been hospitalized within the prior 30 days at any hospital? Yes Coverage Notice Reviewer: [id number] Anne-Marie Sosa Notice Issued Date-Time: 07/31/2019 14:27 Notice Type: Patient Choice Letter Notice Delivered To: Patient Relationship to Patient: Self Fast Food Restaurant Manager Name: Delivery Method: HAND - Hand Delivered Katrin Days: Prior Verbal Notification: Recipient Understood Notice: Yes Recipient Signature: Yes Med Rec Note Co-signed by Attending: Coverage Notice Comment: janessa for [facility] Reviewer: [id number] Anne-Marie Sosa Notice Issued Date-Time: 08/01/2019 10:38 Notice Type: Patient Choice Letter Notice Delivered To: Patient Relationship to Patient: Self Fast Food Restaurant Manager Name: Delivery Method: HAND - Hand Delivered Katrin Days: Prior Verbal Notification: Recipient Understood Notice: Yes Recipient Signature: Yes Med Rec Note Co-signed by Attending: Coverage Notice Comment: J[facility] Last DP export: 08/01/19 9:38 a Patient Name: BRANDIE SWAIN Page 78091 at 1045 All edits/amendments must be made on the electronic document DICTATION DATE: 08/01/19 1045 RETIREMENT PLAN COUNSELOR: GARCÍA 08/01/19 1045 RPT#: [id number] DC DATE: STATUS: ADM IN [facility] [address] [place] [address] END OF REPORT
--- NOTE | 2019-08-01 12:06 | MORECARE ---
CASE MANAGEMENT DISCHARGE SUMMARY PATIENT: BRANDIE SWAIN UNIT: [id number] ADM DATE: 07/30/19 AGE: 63 : 57 SEX: F ROOM/BED: D.7629 AUTHOR: JOSE J,DOC PHYSICIAN: REFERRING PHYSICIAN: JULIAN SANTOS MD DATE OF SERVICE: 08/01/19 Discharge Plan Patient Name: BRANDIE SWAIN Facility: [facility]:[place] : 1955 Planned Disposition: Home with Home Health Anticipated Discharge Date: Discharge Date: Expected LOS: Initial Reviewer: [email or web address] Initial Review Date: 07/31/2019 Generated: 08/01/19 1:05 pm Comments DCP- Discharge Planning Updated by [email or web address]: Pat Sosa on 08/01/19 11:[address] Received a call from Noemy with [facility], they will accept patient. I called Michelle with [facility] and she said they will discharge patient, so [facility] can pick her up. DC today with [facility]. DCP- Discharge Planning Updated by [id number]: Pat Sosa on 08/01/19 9:[address] CM received a call from Michelle from [facility]. Michelle states that they will not be able to accept patient back at discharge. Michelle states they feel patient needs a [facility] that has a psychiatric nurse on staff. I spoke with the patient and she signs JANESSA for [facility]. I called and spoke with the intake person at [facility] and clinical faxed. She states she will give clinical to [place] to review and return call. CM will continue to follow and assist with discharge planning/needs. DCP- Discharge Planning Updated by [id number]: Pat Sosa on 07/31/19 1:[address] Patient Name: BRANDIE SWAIN Admission Status: ER Accout number: [id number] Admission Date: 07-30-2019 : 1955 Admission Diagnosis: Attending: JULIAN SANTOS Current LOS: 1 Anticipated DC Date: Planned Disposition: Home with Home Health Primary Insurance: MEDICARE A & B Discharge Planning Comments: CM received a message from patient's to call him regarding discharge needs. I spoke with the patient and she states it is ok to speak with her . She gives me her history and explains that she has been through a lot of medical problems lately. States she recently spent almost 100 days at [facility]. States "I think I am sleep deprived." States her plan is to return home with [facility]. States they come once a week for nursing. I spoke with patient's on the phone and he is asking about private care. I explained that private care is self pay and a list left in patient room and also I gave him some numbers to call for questions about private care. I spoke with Marisol with [facility] and they will accept her back on discharge. I informed Marisol that she may need assistance with private care, she will help them look into the possibility. Marisol states she will see if she qualifies for ST /OT/PT on discharge as well when they re evaluate her. CM will continue to follow and assist with discharge planning/needs. Chief Meteorologist: Pat Sosa DCPIA - Discharge Planning Initial Assessment Updated by [email or web address]: Pat Sosa on 07/31/19 2:20 pm * Is the patient Alert and Oriented? Yes * How many steps to enter\\exit or inside your home? 0/0 * PCP Dr. Hodge * Pharmacy [facility] [address] * Preadmission Environment Home with Family * ADLs Partial Dependent * Partial ADLs (Assistance needed) Ambulation Bathing * Equipment CPAP Enteral Feeding and Supplies Shower Chair Walker Wheelchair * List name and contact numbers for known caregivers / representatives who currently or will assist patient after discharge: Prashant jules - [phone] * Verbal permission to speak to the caregivers and representatives has been obtained from the patient. Yes * Community resources currently utilized [facility] * Please name any agencies selected above. [facility] [place] for feeding supplies * Additional services required to return to the preadmission environment? No * Can the patient safely return to the preadmission environment? Yes * Has this patient been hospitalized within the prior 30 days at any hospital? Yes Coverage Notice Reviewer: [id number] - Pat Sosa Notice Issued Date-Time: 07/31/2019 14:27 Notice Type: Patient Choice Letter Notice Delivered To: Patient Relationship to Patient: Self Community Development Technician Name: Delivery Method: HAND - Hand Delivered Katrin Days: Prior Verbal Notification: Recipient Understood Notice: Yes Recipient Signature: Yes Med Rec Note Co-signed by Attending: Coverage Notice Comment: janessa for [facility] Reviewer: [email or web address] Anne-Marie Sosa Notice Issued Date-Time: 08/01/2019 10:38 Notice Type: Patient Choice Letter Notice Delivered To: Patient Relationship to Patient: Self Community Development Technician Name: Delivery Method: HAND - Hand Delivered Katrin Days: Prior Verbal Notification: Recipient Understood Notice: Yes Recipient Signature: Yes Med Rec Note Co-signed by Attending: Coverage Notice Comment: [facility] Last DP export: 08/01/19 9:45 a Patient Name: BRANDIE SWAIN Page [id number] at 1206 All edits/amendments must be made on the electronic document DICTATION DATE: 08/01/191204 STEEL SHOT HEADER OPERATOR: GARCÍA 08/01/19 1205 RPT#: [id number] DC DATE: STATUS: ADM IN [facility] [address] [place] [address] END OF REPORT
[2019-08-01 14:00] VITALS: BP 147/70
--- NOTE | 2019-08-01 17:05 | NUR ---
I have reviewed this patient and I concur with the Shift Assessment completed by the Licensed Practical Nurse today this shift.
--- NOTE | 2019-08-01 19:02 | NUR ---
D/C INSTRUCTIONS REVIEWED WITHPT. VERBALIZED UNDERSTANDING. D/C IV WITH CATHETER TIP INTACT. LEFT WITH ALL BELONGINGS TO PERSONAL VEHICLE VIA WHEELCHAIR
--- NOTE | 2019-08-02 16:53 | MORECARE ---
CASE MANAGEMENT DISCHARGE SUMMARY PATIENT: BRANDIE GEIGER UNIT: [id number] ADM DATE: 07/30/19 AGE: 63 : 57 SEX: F ROOM/BED: D.7474 AUTHOR: JOSE J,DOC PHYSICIAN: REFERRING PHYSICIAN: JULIAN SANTOS MD DATE OF SERVICE: 08/02/19 Discharge Plan Patient Name: BRANDIE GEIGER Facility: [facility]:[place] : 1955 Planned Disposition: Home with Home Health Anticipated Discharge Date: Discharge Date: 08/01/2019 Expected LOS: 0 Initial Reviewer: [id number] Initial Review Date: 07/31/2019 Generated: 08/02/19 5:52 pm Comments DCP- Discharge Planning Updated by [email or web address]: Pat Sosa on 08/01/19 11:[address] Received a call from Noemy with [facility], they will accept patient. I called Michelle with [facility] and she said they will discharge patient, so [facility] can pick her up. DC today with [facility]. DCP- Discharge Planning Updated by [email or web address]: Pat Sosa on 08/01/19 9:[address] CM received a call from Michelle from [facility]. Michelle states that they will not be able to accept patient back at discharge. Michelle states they feel [facility] a [facility] nurse on staff. I spoke with the patient and she signs JANESSA for [facility]. I called and spoke with the intake person at [facility] and clinical faxed. She states she will give clinical to Ackerman to review and return call. CM will continue to follow and assist with discharge planning/needs. DCP- Discharge Planning Updated by [id number]: Pat Sosa on 07/31/19 1:[address] Patient Name: BRANDIE GEIGER Admission Status: ER Accout number: [id number] Admission Date: 07-30-2019 : 1955 Admission Diagnosis: Attending: JULIAN SANTOS Current LOS: 1 Anticipated DC Date: Planned Disposition: Home with Home Health Primary Insurance: MEDICARE A & B Discharge Planning Comments: CM received a message from patient's to call him regarding discharge needs. I spoke with the patient and she states it is ok to speak with her . She gives me her history and explains that she has been through a lot of medical problems lately. States she recently spent almost 100 days at [facility]. States "I think I am sleep deprived." States her plan is to return home with [facility]. States they come once a week for nursing. I spoke with patient's on the phone and he is asking about private care. I explained that private care is self pay and a list left in patient room and also I gave him some numbers to call for questions about private care. I spoke with Marisol with [facility] and they will accept her back on discharge. I informed Marisol that she may need assistance with private care, she will help them look into the possibility. Marisol states she will see if she qualifies for ST /OT/PT on discharge as well when they re evaluate her. CM will continue to follow and assist with discharge planning/needs. Director Of Health Care Marketing: Pat Sosa DCPIA - Discharge Planning Initial Assessment Updated by [email or web address]: Pat Sosa on 07/31/19 2:20 pm * Is the patient Alert and Oriented? Yes * How many steps to enter\\exit or inside your home? 0/0 * PCP Dr. Hodge * Pharmacy [facility] on [address] * Preadmission Environment Home with Family * ADLs Partial Dependent * Partial ADLs (Assistance needed) Ambulation Bathing * Equipment CPAP Enteral Feeding and Supplies Shower Chair Walker Wheelchair * List name and contact numbers for known caregivers / representatives who currently or will assist patient after discharge: Prashant Xie [facility] - [phone] * Verbal permission to speak to the caregivers and representatives has been obtained from the patient. Yes * Community resources currently utilized [facility] * Please name any agencies selected above. [facility] [place] for feeding supplies * Additional services required to return to the preadmission environment? No * Can the patient safely return to the preadmission environment? Yes * Has this patient been hospitalized within the prior 30 days at any hospital? Yes Coverage Notice Reviewer: [id number] - Pat Sosa Notice Issued Date-Time: 07/31/2019 14:27 Notice Type: Patient Choice Letter Notice Delivered To: Patient Relationship to Patient: Self Hog Ringer Name: Delivery Method: HAND - Hand Delivered Katrin Days: Prior Verbal Notification: Recipient Understood Notice: Yes Recipient Signature: Yes Med Rec Note Co-signed by Attending: Coverage Notice Comment: janessa for [facility] Reviewer: [email or web address] Anne-Marie Sosa Notice Issued Date-Time: 08/01/2019 10:38 Notice Type: Patient Choice Letter Notice Delivered To: Patient Relationship to Patient: Self Hog Ringer Name: Delivery Method: HAND - Hand Delivered Katrin Days: Prior Verbal Notification: Recipient Understood Notice: Yes Recipient Signature: Yes Med Rec Note Co-signed by Attending: Coverage Notice Comment: JANESSA [facility] Last DP export: 08/01/19 11:06 a Patient Name: BRANDIE GEIGER Page [id number] at 1653 All edits/amendments must be made on the electronic document DICTATION DATE: 08/02/191651 MARKETING PR INTERN: GARCÍA 08/02/191651 RPT#: [id number] DC DATE:08/01/19 STATUS: DIS IN [facility] [address] [place] [address] END OF REPORT
== END 2019-08-01 19:03 | disposition home health service (06) | DRG 689 ==
LOC: D.ER 15:16 → D.M2 18:24
PROVIDERS: Family Medicine; ADMIT Internal Medicine Nephrology; ATTEND Internal Medicine Nephrology
DX: N39.0 Urinary tract infection, site not specified (principal); G93.41 Metabolic encephalopathy; G47.00 Insomnia, unspecified; D64.9 Anemia, unspecified; E03.9 Hypothyroidism, unspecified; I10 Essential (primary) hypertension; E78.5 Hyperlipidemia, unspecified; E83.119 Hemochromatosis, unspecified; G25.81 Restless legs syndrome; K31.84 Gastroparesis; F41.8 Other specified anxiety disorders; F43.10 Post-traumatic stress disorder, unspecified; G89.4 Chronic pain syndrome